=== PATIENT | female | born 1935 | race Caucasian/White ===

== ENCOUNTER 2022-05-28 16:16 | Inpatient (IN) | payer MEDICARE, SELFPAY ==
[2022-05-28] VITALS (16 sets, daily range): BP systolic 99–149; BP diastolic 57–84; PULSE 68–92; RESP 12–30; TEMP 36.4–36.6; O2SAT 93–100; BMI 27.3
--- NOTE | ~2022-05-28 | XR_ITS ---
EXAMINATION: XR elbow LT 2V DATE: 06/05/2022 09:01 INDICATION: Left elbow and upper arm pain post fall TECHNIQUE: 1. Internal and axillary rotated views of the left humerus were obtained. 2. Anteroposterior and lateral views of the left elbow were obtained. COMPARISON: None. FINDINGS: Alignment is normal at the left shoulder and elbow. No fracture. 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 No elbow joint effusion. Soft tissues are unremarkable. Opacities in the left mid to lower lung zone. Calcified nodule at the left costophrenic angle consistent with old granulomatous disease. IMPRESSION: 1. 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 No acute osseous abnormality. 2. Opacities in the left mid to lower lung zone which could represent pulmonary edema, pneumonia, sma ll left pleural effusion or some combination thereof. Reviewed, dictated and finalized at location A. IMPRESSION: 1. 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 No acute osseous abnormality. 2. Opacities in the left mid to lower lung zone which could represent pulmonary edema, pneumonia, small left pleural effusion or some combination thereof.
--- NOTE | ~2022-05-28 | CT_ITS ---
EXAMINATION: CT pelvis wo con DATE: 06/05/2022 08:53 INDICATION: Unwitnessed fall. Pelvic pain. TECHNIQUE: Computed tomography (CT) of the pelvis was performed without intravenous contrast. The dos e-length product was 632.02 mGy-cm. COMPARISON: None FINDINGS: Moderate degenerative change at L5-S1. No acute fracture or traumatic malalignment. There i s colonic diverticulosis. There is ascites. Nonobstructive bowel gas pattern. There is diffuse subcut aneous edema suggesting anasarca. There is atherosclerosis of the distal abdominal aorta and iliac ve ssels. IMPRESSION: 1. No acute fracture. 2: Ascites. Diffuse subcutaneous edema, consistent with anasarca. Reviewed, dictated and finalized at location B.
--- NOTE | ~2022-05-28 | CT_ITS ---
EXAMINATION: CT thoracic spine wo con DATE: 06/05/2022 08:47 INDICATION: Back pain post fall TECHNIQUE: Computed tomography (CT) of the thoracic spine was performed without intravenous contrast. Automated exposure control and iterative reconstruction technique were employed. The dose-length pro duct was 1104.14 mGy-cm. COMPARISON: None FINDINGS: Normal alignment in the thoracic spine. 2 mm retrolisthesis T12 on L1 and L1 on L2. Vertebral body he ights are normal. No fracture. Moderate disc height loss throughout the thoracic spine extending to t he lower cervical and upper lumbar spine. No central canal stenosis. Multilevel moderate to severe th oracic facet osteoarthritis resulting in mild to moderate neural foraminal stenosis with mid thoracic predominance. Moderate-sized right and makpl-cu-lmocdlpk left posterior layering pleural effusions w ith associated dependent compressive atelectasis. Atherosclerotic coronary artery calcification. Calc ified left hilar and mediastinal lymph nodes consistent with old granulomatous disease. Likely benign small bilateral thyroid nodules measuring up to 1.2 cm maximal diameter. 3-4 mm nonobstructing stone at the mid right kidney. 8 mm cyst at the upper pole of the left kidney. IMPRESSION: 1. Moderate thoracic spondylosis. No acute osseous abnormality. 2. Moderate right and byhve-zd-iibdupsq left pleural effusions with dependent compressive atelectasis . 3. Nonobstructing 3-4 mm right renal stone. Reviewed, dictated and finalized at location A. IMPRESSION: 1. Moderate thoracic spondylosis. No acute osseous abnormality. 2. Moderate right and peuxt-ny-oamriayn left pleural effusions with dependent c ompressive atelectasis. 3. Nonobstructing 3-4 mm right renal stone.
--- NOTE | ~2022-05-28 | XR_ITS ---
XR chest 1V portable DATE: 05/31/2022 17:28 INDICATION: Chest tightness TECHNIQUE: Portable upright AP chest on 05/31/2022 at 1723 hours COMPARISON: 05/28/2022 2 view chest FINDINGS: There are extensive patchy infiltrates throughout both lungs, more prominent in the lower l adrianna zones, increased since 05/28/2022. Probable cardiomegaly. There is extensive aortic calcification. Degenerative spurring of the cervical, thoracic and lumbar spine. Severe glenohumeral osteoarthritis on the left. Osteopenia. IMPRESSION: Diffuse prominent bilateral pulmonary infiltrates, increased since 05/28/2022 Reviewed, dictated and finalized at location A.
--- NOTE | ~2022-05-28 | XR_ITS ---
EXAMINATION: XR abdomen/kub 1V INDICATION: Abdominal distention TECHNIQUE: Supine views of the abdomen were obtained on 2 radiographs. COMPARISON: None FINDINGS: The bowel gas pattern is normal. There are no dilated loops of bowel. Calcified atheroscler osis is noted. There is severe lumbar spondylosis. There appear to be minimal airspace opacities of t he left lung base. There is mild osteoarthritis of the hips. IMPRESSION: 1. No radiographic correlate for the patient's symptoms. 2. Minimal left basilar airspace opacity, consistent with atelectasis versus pneumonia. Reviewed, dictated and finalized at location A. IMPRESSION: 1. No radiographic correlate for the patient's symptoms. 2. Minimal left basilar airspace opacity, consistent with atelectasis versus pn eumonia.
--- NOTE | ~2022-05-28 | XR_ITS ---
EXAMINATION: XR chest 1V portable DATE: 06/03/2022 08:35 INDICATION: Shortness of breath. TECHNIQUE: A single frontal view of the chest was obtained. COMPARISON: Chest single view 05/31/2022, chest 2 views 05/28/2022 FINDINGS: There is a diffuse interstitial pattern in the lungs. There are airspace opacities in the p erihilar regions and lower lung zones. There are small pleural effusions. No pneumothorax. Cardiomega ly is noted. IMPRESSION: 1. Diffuse lung disease with mild improvement in the upper lobes, consistent with pulmonary edema melissa lauren pneumonia. 2. Stable small pleural effusions. 3. Cardiomegaly. Reviewed, dictated and finalized at location A. IMPRESSION: 1. Diffuse lung disease with mild improvement in the upper lobes, consistent wi th pulmonary edema versus pneumonia. 2. Stable small pleural effusions. 3. Cardiomegaly.
--- NOTE | ~2022-05-28 | XR_ITS ---
EXAMINATION: XR abdomen obstructive series DATE: 06/05/2022 10:13 INDICATION: Fecal impaction TECHNIQUE: Supine and upright views of the abdomen. FINDINGS: Comparison to multiple prior studies sequentially, with oldest reviewed study dated 022. The visualized lung parenchyma is normal.. There is a nonobstructive bowel gas pattern. Gas and stool are seen throughout the colon to the level of the rectum. There is no free air. There is residual c ontrast in the colon with multiple colonic diverticula. No significant fecal material identified in t he colon. Left basilar consolidation may represent atelectasis or pneumonia. Small pleural effusions. IMPRESSION: 1. No acute abdominal abnormality. 2: Left basilar consolidation, atelectasis versus pneumonia. 3: Small pleural effusions. Reviewed, dictated and finalized at location B.
--- NOTE | ~2022-05-28 | CT_ITS ---
EXAMINATION: CT cervical spine wo con DATE: 06/05/2022 08:44 INDICATION: Head injury TECHNIQUE: Computed tomography (CT) of the cervical spine was performed without intravenous contrast. The dose-length product (DLP) was 262.19 mGy-cm. Automated exposure control and iterative reconstruc tion technique were employed. COMPARISON: None FINDINGS: There are 2 mm of anterolisthesis of C3 on C4. There is severe loss of intervertebral disc space height at C5-6, C6-7, and C7-T1. There is severe facet and uncovertebral joint osteoarthritis t hroughout the cervical spine. The odontoid is intact. There is no fracture. The prevertebral soft tis sues are normal. There are moderate-sized pleural effusions. There are patchy airspace opacities in t he visualized lung apices. IMPRESSION: 1. Severe cervical spondylosis without acute findings. Reviewed, dictated and finalized at location A.
--- NOTE | ~2022-05-28 | CT_ITS ---
EXAMINATION: CT brain wo con DATE: 05/28/2022 18:55 INDICATION: Altered mental status. Hallucinations. TECHNIQUE: Computed tomography (CT) of the head was performed without intravenous contrast. The dose- length product was 756.67 mGy-cm. Automated exposure control and iterative reconstruction technique w ere employed. COMPARISON: No prior studies for comparison. FINDINGS: There is a large CSF density mass involving the left middle cranial fossa and parietal lobe s with mass effect on the adjacent brain parenchyma. This mass measures 7.4 x 4.1 x 6.7 cm, most like ly an arachnoid cyst. There is mass effect on the adjacent parenchyma. No significant midline shift. Basilar cisterns are patent. No ventriculomegaly. There are scattered mild periventricular and subcor tical white matter changes, most likely related to small vessel ischemic disease (microangiopathy). IMPRESSION: 1. Large CSF density mass left hemisphere involving the left middle cranial fossa and parietal lobe, most likely benign arachnoid cyst. Recommend comparison to previous outside CT if available. There is mass effect on the adjacent parenchyma. 2: Chronic age-related findings. Reviewed, dictated and finalized at location A. IMPRESSION: 1. Large CSF density mass left hemisphere involving the left middle cranial fos sa and parietal lobe, most likely benign arachnoid cyst. Recommend comparison t o previous outside CT if available. There is mass effect on the adjacent parenc hyma. 2: Chronic age-related findings.
--- NOTE | ~2022-05-28 | US_ITS ---
EXAMINATION: US abdomen limited DATE: 06/05/2022 13:09 INDICATION: Anasarca and possible ascites TECHNIQUE: Limited ultrasound of the abdomen is obtained to assess for ascites. COMPARISON: None available FINDINGS: Abdominal and pelvic ascites is noted with a moderate volume of ascites in the right upper and lower quadrant and a small amount of ascites in the left lower quadrant. IMPRESSION: 1. Moderate volume of ascites. Reviewed, dictated and finalized at location A.
--- NOTE | ~2022-05-28 | CT_ITS ---
EXAMINATION: CT brain wo con DATE: 06/05/2022 08:44 INDICATION: Altered mental status . Unwitnessed fall. TECHNIQUE: Computed tomography (CT) of the head was performed without intravenous contrast. Sagittal and coronal reconstructions were performed. The mA was adjusted according to patient size. Iterative reconstruction technique was employed. The dose-length product was 605.33 mGy-cm. COMPARISON: head CT dated 05/28/2022 FINDINGS: No fracture. Again seen is a large CSF attenuation or fluid collection containing cephalad from the l eft middle cranial fossa which exerts mass effect upon the left frontal and temporal lobes consistent with an arachnoid cyst. This measures approximately 8.2 x 4.3 x 6.2 cm. No acute intracranial hemorr dwight, acute infarction or abnormal extra axial fluid collection.. There is mild scattered white matte r hypoattenuation consistent with chronic small vessel ischemic disease. Ventricles are normal and sy mmetric. No solid mass. Basal cisterns are patent. Changes of bilateral intraocular lens replacement. The orbits, paranasal sinuses and mastoid air cells are normal. IMPRESSION: 1. No acute intracranial process. 2. Large CSF density lesion extending cephalad from the left middle cranial fossa exerting mass effec t upon the adjacent left frontal and temporal lobes most consistent with an arachnoid cyst. 3. Mild scattered white matter hypoattenuation consistent with chronic small vessel ischemic disease. Reviewed, dictated and finalized at location A. IMPRESSION: 1. No acute intracranial process. 2. Large CSF density lesion extending cephalad from the left middle cranial fos sa exerting mass effect upon the adjacent left frontal and temporal lobes most consistent with an arachnoid cyst. 3. Mild scattered white matter hypoattenuation consistent with chronic small ve ssel ischemic disease.
--- NOTE | ~2022-05-28 | XR_ITS ---
XR abdomen/kub 1V 06/04/2022 12:37 Indication: Abdominal pain Procedure: AP supine view of the abdomen Comparison: 05/29/2022 Findings: Nonobstructive bowel pattern. There is residual contrast in the colon with multiple diverti cula. No abnormal calcifications. There is atherosclerosis of the aorta. There is fecal impaction of the rectum. Impression: 1: Fecal impaction of the rectum. No obstruction. 2: Colonic diverticulosis. Reviewed, dictated and finalized at location B. Impression: 1: Fecal impaction of the rectum. No obstruction. 2: Colonic diverticulosis.
--- NOTE | ~2022-05-28 | XR_ITS ---
EXAMINATION: XR chest 2V DATE: 05/28/2022 17:16 INDICATION: Shortness of breath TECHNIQUE: AP and lateral views of the chest are obtained. COMPARISON: None available FINDINGS: There are patchy airspace opacities throughout the lungs. Small pleural effusions are prese nt. There is no pneumothorax. The heart size is upper limits of normal for technique. There is advanc ed osteoarthritis of the left shoulder. There is moderate thoracic spondylosis. IMPRESSION: 1. Patchy bilateral airspace opacities, consistent with pneumonia versus pulmonary edema. 2. Small pleural effusions. Reviewed, dictated and finalized at location A. IMPRESSION: 1. Patchy bilateral airspace opacities, consistent with pneumonia versus pulmon cassie edema. 2. Small pleural effusions.
--- NOTE | ~2022-05-28 | XR_ITS ---
XR humerus LT 06/05/2022 09:01 Indication: Left arm pain after fall Procedure: 2 views left humerus Comparison: No prior studies for comparison. Findings: There is moderate polyarticular osteoarthritis of the left shoulder. There are degenerative changes of the elbow. No acute fracture or traumatic malalignment. Impression: 1: No acute fracture. Reviewed, dictated and finalized at location B. Impression: 1: No acute fracture.
--- NOTE | ~2022-05-28 | US_ITS ---
EXAMINATION: US renal BI DATE: 05/29/2022 12:35 INDICATION: Renal failure TECHNIQUE: Multiple grayscale and Doppler ultrasound images of the kidneys were obtained. COMPARISON: None. FINDINGS: The right kidney measures 12.1 x 3.8 x 4.5 cm. The left kidney measures 10.9 x 4.4 x 5.2 cm . The kidneys demonstrate normal parenchymal echogenicity. There is no hydronephrosis. The bladder is normal. Ascites is noted. IMPRESSION: 1. Normal kidneys without hydronephrosis. 2. Ascites is noted. Reviewed, dictated and finalized at location A.
--- NOTE | ~2022-05-28 | XR_ITS ---
MODIFIED ESOPHAGRAM HISTORY: Cough on liquids TECHNIQUE: Modified barium esophagram was performed by speech pathologist under radiologist fluorosco pic guidance. This was recorded on tape. The exam was reviewed on 05/31/2022 12:24 CDT. The DAP for this procedure was 1.3 Gycm2. Fluoroscopy time is 2.2 minutes. FINDINGS: Lateral projection of the cervical spine demonstrates normal alignment. There is normal s wallowing function without penetration or aspiration.. IMPRESSION: 1: Normal swallowing function without penetration or aspiration. 2: Please refer to speech pathologist report for additional detail. Reviewed, dictated and finalized at location A.
--- NOTE | ~2022-05-28 | XR_ITS ---
XR chest 1V 06/05/2022 09:01 Indication: Status post fall. Procedure: AP upright view of the chest Comparison: 06/03/2022 Findings: Cardiomegaly. Stable bilateral airspace disease of the mid and lower lungs. Probable small effusions. No acute osseous abnormality. Impression: 1: Stable bilateral airspace disease which may represent edema and/or pneumonia. Reviewed, dictated and finalized at location B. Impression: 1: Stable bilateral airspace disease which may represent edema and/or pneumonia .
--- NOTE | 2022-05-28 16:40 | ECG_ITS ---
Measurements Intervals [place] Rate: 68 P: 76 VA: 161 QRS: -18 QRSD: 114 T: 25 QT: 427 QTc: 455 Interpretive Statements SINUS RHYTHM INTRAVENTRICULAR CONDUCTION DELAY INFERIOR INFARCT, AGE INDETERMINATE ANTEROSEPTAL INFARCT, AGE INDETERMINATE BORDERLINE ST-T WAVE ABNORMALITY- LAT/HIGH LAT LEADS BASELINE WANDER- I, AVR, V1, V3-V6 ABNORMAL ECG NO PREVIOUS ECG AVAILABLE FOR COMPARISON Electronically Signed On 05-28-2022 21:21:43 CDT by Rick Davalos D.O.
[2022-05-28 16:58] LABS: Basophils Absolute Auto 0.1 K/mm3 (0.0-0.1); Basophils Percent Auto 0.8 % (0.2-1.2); Eosinophils Absolute Auto 0.3 K/mm3 (0-0.3); Eosinophils Percent Auto 3.3 % (0-4.4); Hematocrit 31.9 % (37.0-47.0); Hemoglobin 9.4 g/dL (12.0-15.0); Immature Granulocyte Absolute 0.03 K/mm3 (0.00-0.031); Immature Granulocyte Percent A 0.4 % (0-0.5); Lymphocytes Absolute Auto 1.17 K/mm3 (0.9-3.2); Lymphocytes Percent Auto 13.9 % (18.3-44.2); Mean Corpuscular HGB Conc 29.5 g/dl (32-36); Mean Corpuscular Hemoglobin 25.8 pg (26-34); Mean Corpuscular Volume 87.4 fl (80-100); Mean Platelet Volume 9.3 fl (7.4-10.4); Monocytes Absolute Auto 0.7 K/mm3 (0.1-0.6); Monocytes Percent Auto 8.7 % (2.6-8.5); Neutrophils Absolute Auto 6.1 K/mm3 (1.3-6.7); Neutrophils Percent Auto 72.9 % (45.5-73.1); Platelet Count Result 248 k/mm3 (150-375); Red Blood Count 3.65 M/mm3 (4.2-5.4); Red Cell Distribution Width 16.5 % (11.5-14.5); White Blood Count 8.4 K/mm3 (4.5-10.0)
[2022-05-28 17:03] LABS: Alanine Aminotransferase 11 U/L (6-35); Albumin Level 3.8 g/dL (3.5-5.1); Alkaline Phosphatase 75 U/L (38-126); Anion Gap 11 mmol/L (8-16); Aspartate Amino Transferase 26 U/L (14-36); Blood Urea Nitrogen 21 mg/dL (7-17); Calcium 10.1 mg/dL (8.4-10.2); Carbon Dioxide 28 mmol/L (22-30); Chloride 101 mmol/L (98-107); Estimated CRCL calculation 16 ml/min; Estimated Glomerular Filt Rate 21; Glucose 78 mg/dL (65-110); Sodium 140 mmol/L (137-145)
[2022-05-28 17:21] LABS: Hypochromasia 1+ (NORMAL); Ovalocytes 1+ (NORMAL); Platelet Estimate Adequate (Adequate); Target Cells 1+ (NORMAL)
[2022-05-28 17:22] LABS: Schistocytes None Seen (NORMAL)
--- NOTE | 2022-05-28 18:09 | ED.SOB ---
HPI - SOB/Dyspnea General Chief Complaint: Shortness of Breath/Dyspnea <Anna Maddox PA-C - Last Filed: 05/28/22 21:36> Stated Complaint: shortness of breath <Anna Maddox PA-C - Last Filed: 05/28/22 21:36> Time Seen by Provider: 05/28/22 17:38 <Anna Maddox PA-C - Last Filed: 05/28/22 21:36> Source: patient <Anna Maddox PA-C - Last Filed: 05/28/22 21:36> Mode of arrival: EMS <CHRISTIANO Brown Last Filed: 05/28/22 21:36> Limitations: no limitations <Anna Maddox PA-C - Last Filed: 05/28/22 21:36> History of Present Illness HPI Narrative: Patient is an 86-year-old female, with PMHx of COPD, who presents the ED via EMS with report of AMS, SOB. Patient's niece at bedside assisted in providing information. Patient is currently undergoing physical rehabilitation at [facility] status post fall and acute kidney injury 5 weeks ago in which she was hospitalized for several days at [facility]. Over the last day, she has had increased work of breathing. She was noted to have an oxygen saturation of 84% on room air at therapy today. EMS was then called to bring the patient here. Patient does not wear home O2. She does report having shortness of breath, cough, BLE edema, but denies any nausea, vomiting, abdominal pain, chest pain, fevers. Niece at bedside also reports patient has been having some auditory hallucinations over the last couple days, thinking she has been hearing the voices of relatives who have . <Anna Maddox PA-C - Last Filed: 05/28/22 21:36> Related Data Home Medications: Home Medications Medication Instructions Recorded Confirmed amlodipine 5 mg tablet 5 mg PO QHS 05/28/22 05/28/22 aspirin 81 mg tablet 81 mg PO DAILY 05/28/22 05/28/22 fluticasone fur. 100 mcg-umeclid 1 inh inhalation DAILY 05/28/22 05/28/22 62.5 mcg-vilant 25 mcg inhalat.powder (Trelegy Ellipta) metoprolol tartrate 50 mg tablet 50 mg PO BID 05/28/22 05/28/22 mirtazapine 15 mg tablet (Remeron) 7.5 mg PO HS 05/28/22 05/28/22 sodium bicarbonate 650 mg tablet 1,300 mg PO BID 05/28/22 05/28/22 solifenacin 10 mg tablet (Vesicare) 10 mg PO QAM 05/28/22 05/28/22 <CHRISTIANO Brown Last Filed: 05/28/22 21:36> Allergies/Adverse Reactions: Allergies Allergy/AdvReac Type Severity Reaction Status Date / Time Penicillins Allergy Rash Verified 05/28/22 19:43 <Anna Maddox PA-C - Last Filed: 05/28/22 21:36> Review of Systems Review of Systems: CONSTITUTIONAL: Denies fever, chills, or sweats. CARDIOVASCULAR: Reports BLE edema. Denies chest pain, palpitations. RESPIRATORY: Reports cough and dyspnea. GASTROINTESTINAL: Denies abdominal pain, nausea, vomiting, or diarrhea. NEUROLOGIC: Denies headache, numbness, or weakness. PSYCHIATRIC: Reports auditory hallucinations. Denies anxiety or depression. <CHRISTIANO Brown Last Filed: 05/28/22 21:36> All systems reviewed & are unremarkable except as noted in HPI and below <CHRISTIANO Brown Last Filed: 05/28/22 21:36> [facility] Past Medical History Medical History: Medical History (Updated 06/07/22 @ 15:19 by Megan Parra APRN) (HFpEF) heart failure with preserved ejection fraction Acute kidney injury Anasarca Anemia Arachnoid cyst CKD (chronic kidney disease) COPD (chronic obstructive pulmonary disease) Depression HTN (hypertension) Hypothyroidism Overactive bladder Paroxysmal atrial fibrillation Pulmonary hypertension <CHRISTIANO Brown Last Filed: 05/28/22 21:36> Surgical History Surgical History: Surgical History History of knee replacement History of tonsillectomy <Anna Maddox PA-C - Last Filed: 05/28/22 21:36> Family History Family History: Family History (Reviewed 06/07/22 @ 15:20 by Megan Barahona
[2022-05-28 18:44] LABS: SARS-CoV-2 RNA PCR Negative
[2022-05-28 19:01] LABS: NT Pro B Type Natriuretic Pept 14200 pg/mL (5-100); Troponin I 0.025 ng/mL (0.000-0.034)
[2022-05-28] MEDS: FUROSEMIDE INJ 40 MG/4 ML VIAL IV PUSH (19:46)
[2022-05-28] MEDS: POTASSIUM CHLORIDE INJ 40 MEQ in SODIUM CHLORIDE 0.9% IV 500 ML 130 MEQ IVPB (19:46)
--- NOTE | 2022-05-28 20:19 | PC.NURSE ---
Pt assisted x1 to bedside commode to void. UA not collected due to pt had used toilet paper with visible stool fell into specimen cup. UA dispose of now. PA made aware.
[2022-05-28 20:46] LABS: Appearance Urine Clear (Clear); Bilirubin Urine Negative (Negative); Color Urine Yellow (Yellow); Glucose Urine UA Negative (Negative); Ketones Urine Negative (Negative); Leukocyte Esterase Ur 3+ LEU/UL (Negative); Nitrate Urine Positive (Negative); Protein Urine 1+ mg/dL (Negative); Specific Grav Ur 1.015 (1.001-1.035); Urobilinogen Urine 0.2 mg/dL (<2.0); pH Urine 6.5 (5.0-9.0)
[2022-05-28 20:57] LABS: Add Urine Microscopic? YES; Blood Urine Trace-Intact (Negative)
[2022-05-28 20:59] LABS: Amorphous Sediment Urine Few; Bacteria Urine Trace /hpf; Mucus Urine Rare /lpf; WBC Urine 31-50 /hpf
[2022-05-28 21:07] LABS: Troponin I 0.027 ng/mL (0.000-0.034)
--- NOTE | 2022-05-28 21:57 | ADMGEN ---
This patient, Simona Gaytan, was admitted to Medical Room 343-01. Patient/family oriented to hospital policies and general routines including ID bracelet, bed and alarms, visiting hours, pain management, procedures, bathroom and other care routines, personal items, smoking policy, room service/diet, and visiting hours. Information on how to activate the Rapid Response Team has been discussed. Patient/Family are encouraged to report perceived risks to care and to ask questions if they do not understand what they are told or what they should do.
--- NOTE | 2022-05-28 22:53 | PC.NURSE ---
PER ED UNABLE TO OBTAIN UA FROM PATIENT. PT RECORD SHOWS COLLECTION WAS COMPLETED. CALLED MAIN LAB TO VERIFY RECEIPT OF UA. PER GUALBERTO TECHNICAL OPERATIONS SPECIALIST, UA RECEIVED AND CURRENTLY PROCESSING.
--- NOTE | 2022-05-28 23:04 | PM.IMHP ---
H&P: HPI History of Present Illness Date/Time: 05/28/22 23:04 Chief Complaint: Shortness of breath Narrative: Patient is an 86-year-old female, with PMHx of COPD, who presents the ED via EMS with report of AMS and SOB.? patient is currently somnolent the history is taken from the medical records. She has currently in a rehab facility underlying rehabilitation from recent admission related to fall and acute kidney injury about 5 weeks ago at [facility]. Over the last few days she has been having increased work of breathing and was noted hypoxia oxygen saturation 84% therapy. See was then brought into the ER for further evaluation. She normally is not on oxygen at home. She denies any fever chills chest pain nausea vomiting abdominal pain. It has also been reported that she has been having some auditory hallucinations over the last few days. Which relates to hearing voices the related to a . On the ED evaluation she was noted to be hypoxic with mildly low blood pressure. Her potassium was low at 3 with creatinine 2.2. Prior records are not available for review. Baseline [place] [id number]. Chest x-ray was consistent with heart failure exacerbation pleural effusion pulmonary edema. She was placed on 2 L oxygen as her oxygen saturation was 88% on room air. She was given IV Lasix in the ER. COVID swab was done and was negative. Head CT was done which showed large arachnoid cyst which will also reported to be present and previous CT scans. Review of Systems Review of Systems: - CONSTITUTIONAL: Denies weight loss, fever and chills. - HEENT: Denies changes in vision and hearing - RESPIRATORY: Reports SOB and cough. - CV: Denies palpitations and CP. - GI: Denies abdominal pain, nausea, vomiting and diarrhea. - : Denies dysuria and urinary frequency. - MSK: Denies myalgia and joint pain. - SKIN: Denies rash and pruritus. - NEUROLOGICAL: Denies headache and syncope. - PSYCHIATRIC: Denies recent changes in mood. Denies anxiety and depression. PENDING SALE TO [facility] Past Medical History Medical History (Updated 05/28/22 @ 23:11 by Shreyas Osei MD) COPD (chronic obstructive pulmonary disease) Depression HTN (hypertension) Overactive bladder Surgical History Surgical History (Updated 05/28/22 @ 19:23 by Anna Maddox PA-C) History of knee replacement History of tonsillectomy Social History Social History (Updated 05/28/22 @ 19:23 by Anna Maddox PA-C) Smoking status: Never smoker Alcohol intake: current Drinks per week: 3 Substance use: never Living arrangements: assisted living Spiritual care concerns: No Meds Home Medications and Allergies Home Medications Medication Instructions Recorded Confirmed Type amlodipine 5 mg tablet 5 mg PO QHS 05/28/22 05/28/22 History aspirin 81 mg tablet 81 mg PO DAILY 05/28/22 05/28/22 History fluticasone fur. 100 mcg-umeclid 1 inh inhalation DAILY 05/28/22 05/28/22 History 62.5 mcg-vilant 25 mcg inhalat.powder (Trelegy Ellipta) metoprolol tartrate 50 mg tablet 50 mg PO BID 05/28/22 05/28/22 History mirtazapine 15 mg tablet (Remeron) 7.5 mg PO HS 05/28/22 05/28/22 History sodium bicarbonate 650 mg tablet 1,300 mg PO BID 05/28/22 05/28/22 History solifenacin 10 mg tablet (Vesicare) 10 mg PO QAM 05/28/22 05/28/22 History Allergies Allergy/AdvReac Type Severity Reaction Status Date / Time Penicillins Allergy Rash Verified 05/28/22 19:43 Vital Signs Vital Signs - 24 hr 05/28/22 16:34 05/28/22 17:06 05/28/22 16:40 Temperature 97.8 F Pulse Rate 70 70 Respiratory Rate 20 Blood Pressure 99/57 L Pulse Oximetry 100 97 Oxygen Delivery Room Air Nasal Cannula Oxygen Flow Rate 2 05/28/22 16:40 05/28/22 19:50 05/28/22 20:05 Temperature Pulse Rate 84 Respiratory Rate 20 28 H Blood Pressure 149/84 H Pulse Oximetry 97 100 100 Oxygen Delivery Edward
[2022-05-28 23:22] LABS: Troponin I 0.027 ng/mL (0.000-0.034)
[2022-05-28 23:26] LABS: Base Excess ABG 3.6 mEq/l (+/-2.0); Fractional Inspired Oxygen 28 %; HCO3 ABG 29.5 mEq/l (22.0-26.0); Oxygen Content ABG 14.4 %vol (16.0-22.0); Oxygen Saturation ABG 94.6 % (95.0-100.0); Oxyhemoglobin 93.5 % THb (90.0-100.0); PCO2 ABG 50.9 mmHg (35.0-45.0); PO2 ABG 74.6 mmHg (80.0-100.0); PO2 FiO2 Ratio Arterial Blood 2.66 %; Total Hemoglobin 10.9 g/dL (12.0-18.0); pH ABG 7.381 (7.350-7.450)
[2022-05-28 23:27] LABS: Device NASAL CANNULA; Modified Allen's Test Pass; Site Drawn LEFT RADIAL
--- NOTE | 2022-05-28 23:28 | PC.NURSE ---
NOTIFIED LAB OF NEW ORDERS TO BE APPLIED TO UA SPECIMEN.
[2022-05-28] MEDS: SODIUM CHLORIDE 0.9% IV 1,000 ML 50 ML IV CONT (23:54)
[2022-05-28 23:55] LABS: Urea Random Urine 233 MG/DL
[2022-05-28] MEDS: amLODIPine BESYLATE 5 MG TABLET PO (23:58)
[2022-05-28] MEDS: METOPROLOL TARTRATE 50 MG TAB PO (23:58)
[2022-05-28 23:59] LABS: Lactic Acid Reflex 0.8 mmol/L (0.7-2.0)
[2022-05-29] VITALS (13 sets, daily range): BP systolic 129–137; BP diastolic 68–83; PULSE 63–80; RESP 16–22; TEMP 36.4–36.7; O2SAT 95–100
--- NOTE | 2022-05-29 | ECHO_ITS ---
Patient Info Name: Simona Gaytan Age: 86 years : 1935 Gender: Female Ht: 65 in Wt: 164 lbs BSA: 1.86 m2 HR: 64 bpm BP: 133 / 83 mmHg Heart Rhythm: Sinus Rhythm Technical Quality: Fair Exam Date: 05/29/2022 8:57 AM Exam Location: [facility] Card Pulmonary Patient Status: Inpatient Admit Date: 05/28/2022 Staff Ordering Physician: Shreyas Osei MD Technical Support Manager: Acacia Hicks RDCS Attending Provider: Shreyas Osei MD Exam Type: CA echo doppler color flow Study Info Indications R06.02 - Shortness of breath Complete two-dimensional, color flow and Doppler transthoracic echocardiogram is performed. Summary 1. Complete two-dimensional, color flow and Doppler transthoracic echocardiogram is performed. 2. Left ventricular chamber dimension is normal. 3. Left ventricular systolic function is normal, estimated at 65-70%. 4. The left ventricular diastolic function is grade II diastolic dysfunction. 5. E/e' 18 is elevated. 6. Left atrial chamber dimension is mildly enlarged. 7. There is mild mitral valve regurgitation. 8. There is moderate tricuspid valve regurgitation. 9. Severe pulmonary hypertension, estimated pulmonary arterial systolic pressure is 64 mmHg. 10. There is trivial pericardial effusion. 11. Pleural effusion noted. Left Ventricle E/e' 18 is elevated. Left ventricular chamber dimension is normal. Left ventricular systolic function is normal, estimated at 65-70%. The left ventricular diastolic function is grade II diastolic dysfunction. Right Ventricle Right ventricular chamber dimension is normal. Right ventricular systolic function is normal. Left Atria Left atrial chamber dimension is mildly enlarged. Right Atria Right atrial chamber dimension is normal. Aortic Valve The aortic valve is trileaflet. There is no aortic valve stenosis. There is no aortic valve regurgitation. Pulmonic Valve There is no pulmonic regurgitation. Mitral Valve There is no mitral valve stenosis. There is mild mitral valve regurgitation. Tricuspid Valve There is moderate tricuspid valve regurgitation. Severe pulmonary hypertension, estimated pulmonary arterial systolic pressure is 64 mmHg. Pericardium/Pleural Pleural effusion noted. There is trivial pericardial effusion. Inferior Vena Cava Normal inferior vena cava with >50% collapse upon inspiration consistent with normal right atrial pressure, 5 mmHg. Aorta The aortic root size at the sinus of Valsalva is normal. Left Ventricular Outflow Tract Name Value Normal LVOT 2D LVOT Diameter 2.0 cm LVOT Doppler LVOT Peak Gradient 4 mmHg LVOT Mean Gradient 2 mmHg LVOT VTI 25 cm LVOT VTI/AV VTI Ratio 0.7 LVOT Stroke Volume 74 ml LVOT CO 5.2 l/min LVOT CI 2.8 l/min/m2 Pulmonic Valve Name Value N
[2022-05-29 00:01] LABS: Sodium Urine Random 96 meq/L
[2022-05-29 01:13] LABS: Eosinophil Urine None Seen % (None Seen)
[2022-05-29 05:38] LABS: Basophils Absolute Auto 0.1 K/mm3 (0.0-0.1); Basophils Percent Auto 0.6 % (0.2-1.2); Eosinophils Absolute Auto 0.4 K/mm3 (0-0.3); Eosinophils Percent Auto 5.1 % (0-4.4); Hematocrit 30.8 % (37.0-47.0); Immature Granulocyte Absolute 0.02 K/mm3 (0.00-0.031); Immature Granulocyte Percent A 0.2 % (0-0.5); Lymphocytes Percent Auto 9.3 % (18.3-44.2); Mean Corpuscular HGB Conc 29.2 g/dl (32-36); Mean Corpuscular Hemoglobin 26.1 pg (26-34); Mean Corpuscular Volume 89.3 fl (80-100); Mean Platelet Volume 9.5 fl (7.4-10.4); Monocytes Absolute Auto 0.9 K/mm3 (0.1-0.6); Monocytes Percent Auto 10.7 % (2.6-8.5); Neutrophils Absolute Auto 6.4 K/mm3 (1.3-6.7); Neutrophils Percent Auto 74.1 % (45.5-73.1); Platelet Count Result 219 k/mm3 (150-375); Red Blood Count 3.45 M/mm3 (4.2-5.4); Red Cell Distribution Width 16.5 % (11.5-14.5); White Blood Count 8.6 K/mm3 (4.5-10.0)
[2022-05-29 05:52] LABS: Alanine Aminotransferase 10 U/L (6-35); Albumin Level 3.4 g/dL (3.5-5.1); Alkaline Phosphatase 68 U/L (38-126); Anion Gap 10 mmol/L (8-16); Aspartate Amino Transferase 22 U/L (14-36); Bilirubin,Total 0.7 mg/dL (0.2-1.3); Blood Urea Nitrogen 21 mg/dL (7-17); Calcium 9.5 mg/dL (8.4-10.2); Carbon Dioxide 30 mmol/L (22-30); Chloride 103 mmol/L (98-107); Estimated CRCL calculation 18 ml/min; Estimated Glomerular Filt Rate 21; Glucose 76 mg/dL (65-110); Magnesium 1.9 mg/dL (1.6-2.3); Potassium 3.1 mmol/L (3.4-5.0); Sodium 143 mmol/L (137-145)
[2022-05-29 06:08] LABS: Anisocytosis 1+ (NORMAL); Hypochromasia 1+ (NORMAL); Platelet Estimate Adequate (Adequate)
[2022-05-29 06:35] LABS: Schistocytes None Seen (NORMAL)
[2022-05-29] MEDS: FLUTICASONE/UMECLIDIN/VILANTER 100-62.5-25 MCG ELLIPTA 1 PUFF INHALATION (08:11)
[2022-05-29 09:04] LABS: Transferrin 166 mg/dL (206-381)
[2022-05-29] MEDS: POTASSIUM CHLORIDE 20 MEQ TABLET 40 MEQ PO (09:55)
[2022-05-29] MEDS: SODIUM BICARBONATE TAB 650 MG TABLET 1300 MG PO ×2 (09:56→16:46)
[2022-05-29] MEDS: ASPIRIN 81 MG CHEWABLE TABLET PO (09:56)
[2022-05-29] MEDS: SOLIFENACIN 5 MG TABLET 10 MG PO (09:56)
[2022-05-29] MEDS: METOPROLOL TARTRATE 50 MG TAB PO ×2 (09:56→16:47)
--- NOTE | 2022-05-29 10:00 | P.PNIM_ITS ---
Progress Note: A&P Assessment and Plan (1) Acute CHF (congestive heart failure): Qualifiers: Heart failure type: unspecified Qualified Code(s): I50.9 - Heart failure, unspecified Code(s): I50.9 - Heart failure, unspecified Status: Acute Assessment and Plan: * Chest xray consistent with heart failure, pleural effusion and pulmonary edema * Baseline trop negative * BNP 93817 * Supplement oxygen at 2L, wean to maintain saturation of >90% * IV lasix 40mg BID * Daily weights * Strict I and Os * Echo EF 65-70% with grade 2 diastolic dysfunction * Probably an acute on chronic diastolic congestive heart failure exacerbation (2) Acute respiratory failure with hypoxia: Code(s): J96.01 - Acute respiratory failure with hypoxia Status: Acute Assessment and Plan: * Presented with increase work of breathing, hypoxic, tripoding, and unabale to finish sentences * Saturation on arrival was 84% * Supplement oxygen provided * ABG resp acidosis * Continue to wean oxygen (3) Acute hypokalemia: Code(s): E87.6 - Hypokalemia Status: Acute Assessment and Plan: * K is 3.1 * Supplement with 40meq PO once * Trend K * Replace as indicated (4) Urinary tract infection: Qualifiers: Hematuria presence: with hematuria Urinary tract infection type: acute cystitis Qualified Code(s): N30.01 - Acute cystitis with hematuria Code(s): N39.0 - Urinary tract infection, site not specified Status: Acute Assessment and Plan: * UA does appear to be infectious * Ceftriaxone on board * Urine culture pending * Await culture results * Adjust antibiotics to culture results (5) COPD (chronic obstructive pulmonary disease): Code(s): J44.9 - Chronic obstructive pulmonary disease, unspecified Status: Acute Assessment and Plan: * Seems stable * Chest xray paints more of a CHF picture * Neb treatments * trend respiratory status (6) HTN (hypertension): Code(s): I10 - Essential (primary) hypertension Status: Acute Assessment and Plan: * BP 133/83 * Continue amlodipine 5mg PO QHS, Metoprolol 50mg PO BID * Continue to trend BP * Adjust therapy as indicated (7) Overactive bladder: Code(s): N32.81 - Overactive bladder Status: Acute Assessment and Plan: * Continue Vesicare (8) Hallucinations: Code(s): R44.3 - Hallucinations, unspecified Status: Acute Assessment and Plan: * Continue to monitor * Could be related to infection * Head CT found a cyst (9) Acute metabolic encephalopathy: Code(s): G93.41 - Metabolic encephalopathy Status: Acute Assessment and Plan: * 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 large arachnoid cyst * Could also be from infection * Continue to trend mental status * continue home Remeron for sleep health (10) 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
--- NOTE | 2022-05-29 10:00 | PM.IMPN ---
Progress Note: A&P Assessment and Plan (1) Acute CHF (congestive heart failure): Qualifiers: Heart failure type: unspecified Qualified Code(s): I50.9 - Heart failure, unspecified Code(s): I50.9 - Heart failure, unspecified Status: Acute Assessment and Plan: Chest xray consistent with heart failure, pleural effusion and pulmonary edema Baseline trop negative BNP 39681 Supplement oxygen at 2L, wean to maintain saturation of >90% IV lasix 40mg BID Daily weights Strict I and Os Echo EF 65-70% with grade 2 diastolic dysfunction Probably an acute on chronic diastolic congestive heart failure exacerbation (2) Acute respiratory failure with hypoxia: Code(s): J96.01 - Acute respiratory failure with hypoxia Status: Acute Assessment and Plan: Presented with increase work of breathing, hypoxic, tripoding, and unabale to finish sentences Saturation on arrival was 84% Supplement oxygen provided ABG resp acidosis Continue to wean oxygen (3) Acute hypokalemia: Code(s): E87.6 - Hypokalemia Status: Acute Assessment and Plan: K is 3.1 Supplement with 40meq PO once Trend K Replace as indicated (4) Urinary tract infection: Qualifiers: Hematuria presence: with hematuria Urinary tract infection type: acute cystitis Qualified Code(s): N30.01 - Acute cystitis with hematuria Code(s): N39.0 - Urinary tract infection, site not specified Status: Acute Assessment and Plan: UA does appear to be infectious Ceftriaxone on board Urine culture pending Await culture results Adjust antibiotics to culture results (5) COPD (chronic obstructive pulmonary disease): Code(s): J44.9 - Chronic obstructive pulmonary disease, unspecified Status: Acute Assessment and Plan: Seems stable Chest xray paints more of a CHF picture Neb treatments trend respiratory status (6) HTN (hypertension): Code(s): I10 - Essential (primary) hypertension Status: Acute Assessment and Plan: BP 133/83 Continue amlodipine 5mg PO QHS, Metoprolol 50mg PO BID Continue to trend BP Adjust therapy as indicated (7) Overactive bladder: Code(s): N32.81 - Overactive bladder Status: Acute Assessment and Plan: Continue Vesicare (8) Hallucinations: Code(s): R44.3 - Hallucinations, unspecified Status: Acute Assessment and Plan: Continue to monitor Could be related to infection Head CT found a cyst (9) Acute metabolic encephalopathy: Code(s): G93.41 - Metabolic encephalopathy Status: Acute Assessment and Plan: 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 large arachnoid cyst Could also be from infection Continue to trend mental status continue home Remeron for sleep health (10) 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 While talking the patient you tell that she was very short of breath and that was really hard for to talk. She does appear dry according to mucous membranes however she does have pre get pitting edema. She denies any nausea, vomiting, diarrhea, constipation, chest pain, weakness or fatigue. She did state
[2022-05-29 10:04] LABS: Folic Acid 10.8 ng/mL (2.76->20)
[2022-05-29 12:26] LABS: Iron 32 ug/dL (37-170)
[2022-05-29 12:46] LABS: Percent Iron Saturation 14 % (20-50)
[2022-05-29] MEDS: FUROSEMIDE INJ 40 MG/4 ML VIAL IV PUSH (13:20)
[2022-05-29] MEDS: amLODIPine BESYLATE 5 MG TABLET PO (21:24)
[2022-05-30] VITALS (11 sets, daily range): BP systolic 104–138; BP diastolic 52–65; PULSE 60–89; RESP 16–18; TEMP 36.5–37; O2SAT 98–100
[2022-05-30 05:57] LABS: Basophils Percent Auto 0.3 % (0.2-1.2); Eosinophils Absolute Auto 0.6 K/mm3 (0-0.3); Eosinophils Percent Auto 6.1 % (0-4.4); Hematocrit 29.6 % (37.0-47.0); Hemoglobin 8.6 g/dL (12.0-15.0); Immature Granulocyte Absolute 0.04 K/mm3 (0.00-0.031); Immature Granulocyte Percent A 0.4 % (0-0.5); Lymphocytes Absolute Auto 0.91 K/mm3 (0.9-3.2); Lymphocytes Percent Auto 8.7 % (18.3-44.2); Mean Corpuscular HGB Conc 29.1 g/dl (32-36); Mean Corpuscular Hemoglobin 25.9 pg (26-34); Mean Corpuscular Volume 89.2 fl (80-100); Mean Platelet Volume 9.9 fl (7.4-10.4); Monocytes Absolute Auto 1.1 K/mm3 (0.1-0.6); Monocytes Percent Auto 10.7 % (2.6-8.5); Neutrophils Absolute Auto 7.8 K/mm3 (1.3-6.7); Neutrophils Percent Auto 73.8 % (45.5-73.1); Platelet Count Result 217 k/mm3 (150-375); Red Blood Count 3.32 M/mm3 (4.2-5.4); Red Cell Distribution Width 16.4 % (11.5-14.5); White Blood Count 10.5 K/mm3 (4.5-10.0)
[2022-05-30 06:11] LABS: Alanine Aminotransferase 9 U/L (6-35); Albumin Level 3.2 g/dL (3.5-5.1); Alkaline Phosphatase 58 U/L (38-126); Anion Gap 11 mmol/L (8-16); Aspartate Amino Transferase 19 U/L (14-36); Bilirubin,Total 0.3 mg/dL (0.2-1.3); Blood Urea Nitrogen 20 mg/dL (7-17); Calcium 9.2 mg/dL (8.4-10.2); Carbon Dioxide 33 mmol/L (22-30); Chloride 98 mmol/L (98-107); Estimated CRCL calculation 19 ml/min; Estimated Glomerular Filt Rate 20; Glucose 90 mg/dL (65-110); Magnesium 1.7 mg/dL (1.6-2.3); Potassium 2.9 mmol/L (3.4-5.0); Sodium 142 mmol/L (137-145)
--- NOTE | 2022-05-30 07:53 | PCOTNOTE ---
Attempted OT evaluation, patient declined at this time reporting stop it! . Will follow and attempt at later time.
[2022-05-30] MEDS: FLUTICASONE/UMECLIDIN/VILANTER 100-62.5-25 MCG ELLIPTA 1 PUFF INHALATION (08:35)
--- NOTE | 2022-05-30 09:31 | PCSTNOTE ---
Patient sleeping and unable to wake up. Will attempt bedside swallowing evaluation at another time.
--- NOTE | 2022-05-30 09:33 | PCPTNOTE ---
Attempted PT evaluation, patient declined at this time reporting stop it! . Will follow and attempt at later time.
[2022-05-30] MEDS: METOPROLOL TARTRATE 50 MG TAB PO (10:02)
[2022-05-30] MEDS: FUROSEMIDE INJ 40 MG/4 ML VIAL IV PUSH (10:02)
[2022-05-30] MEDS: SOLIFENACIN 5 MG TABLET 10 MG PO (10:02)
[2022-05-30] MEDS: ASPIRIN 81 MG CHEWABLE TABLET PO (10:02)
[2022-05-30] MEDS: SODIUM BICARBONATE TAB 650 MG TABLET 1300 MG PO (10:02)
--- NOTE | 2022-05-30 10:15 | PM.IMPN ---
Progress Note: A&P Assessment and Plan (1) Acute CHF (congestive heart failure): Qualifiers: Heart failure type: unspecified Qualified Code(s): I50.9 - Heart failure, unspecified Code(s): I50.9 - Heart failure, unspecified Status: Acute Assessment and Plan: Chest xray consistent with heart failure, pleural effusion and pulmonary edema Baseline trop negative BNP 72111 Supplement oxygen at 2L, wean to maintain saturation of >90% IV lasix 40mg BID for now Daily weights Strict I and Os Echo EF 65-70% with grade 2 diastolic dysfunction Probably an acute on chronic diastolic congestive heart failure exacerbation (2) Acute respiratory failure with hypoxia: Code(s): J96.01 - Acute respiratory failure with hypoxia Status: Acute Assessment and Plan: Presented with increase work of breathing, hypoxic, tripoding, and unabale to finish sentences Saturation on arrival was 84% Supplement oxygen provided, currently on room air ABG resp acidosis Continue to wean oxygen (3) Acute hypokalemia: Code(s): E87.6 - Hypokalemia Status: Acute Assessment and Plan: K is 2.9 Supplement with 40meq PO once, along with 40IV Redraw 1 hour post infusion Trend K Replace as indicated (4) Urinary tract infection: Qualifiers: Hematuria presence: with hematuria Urinary tract infection type: acute cystitis Qualified Code(s): N30.01 - Acute cystitis with hematuria Code(s): N39.0 - Urinary tract infection, site not specified Status: Acute Assessment and Plan: UA does appear to be infectious Ceftriaxone on board Urine culture pending Await culture results Adjust antibiotics to culture results (5) COPD (chronic obstructive pulmonary disease): Code(s): J44.9 - Chronic obstructive pulmonary disease, unspecified Status: Acute Assessment and Plan: Seems stable Chest xray paints more of a CHF picture Neb treatments trend respiratory status (6) HTN (hypertension): Code(s): I10 - Essential (primary) hypertension Status: Acute Assessment and Plan: BP 104/52 Continue amlodipine 5mg PO QHS, Metoprolol 50mg PO BID Continue to trend BP Adjust therapy as indicated (7) Overactive bladder: Code(s): N32.81 - Overactive bladder Status: Acute Assessment and Plan: Continue Vesicare (8) Hallucinations: Code(s): R44.3 - Hallucinations, unspecified Status: Acute Assessment and Plan: Continue to monitor Could be related to infection Head CT found a cyst (9) Acute metabolic encephalopathy: Code(s): G93.41 - Metabolic encephalopathy Status: Acute Assessment and Plan: 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 large arachnoid cyst Could also be from infection Continue to trend mental status Hold Remeron Urine culture still pending (10) 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 cysts Status: Acute Assessment and Plan: Found on ct Outpatient follow up (11) Anemia: Code(s): D64.9 - Anemia, unspecified Status: Acute Assessment and Plan: H/H 8.6/29.6 Anemia studies iron 32, TIBC 231, % sat 14, Transferrin 166, Ferritin 165, B12 429, Folate 10.8 Start ferrous sulfate Trend H/H Adjust therapy as indicated Appears to be a combination of iron deficiency and anemia of chronic disease (12) Urinary retention: Code(s): R33.9 - Retention of urine, unspecified Status: Acute Assessment and Plan: Bladder scanner found >500ml Urinary catheter inserted Trend urine output Start tamsulosin Time Spent With Patient Time with patient: Greater than 35 minutes Subjective Date/time seen: 05/30/22 1015 Interval history: 05/30/22 1015 Patient appears to be ve
--- NOTE | 2022-05-30 10:15 | P.PNIM_ITS ---
Progress Note: A&P Assessment and Plan (1) Acute CHF (congestive heart failure): Qualifiers: Heart failure type: unspecified Qualified Code(s): I50.9 - Heart failure, unspecified Code(s): I50.9 - Heart failure, unspecified Status: Acute Assessment and Plan: * Chest xray consistent with heart failure, pleural effusion and pulmonary edema * Baseline trop negative * BNP 31771 * Supplement oxygen at 2L, wean to maintain saturation of >90% * IV lasix 40mg BID for now * Daily weights * Strict I and Os * Echo EF 65-70% with grade 2 diastolic dysfunction * Probably an acute on chronic diastolic congestive heart failure exacerbation (2) Acute respiratory failure with hypoxia: Code(s): J96.01 - Acute respiratory failure with hypoxia Status: Acute Assessment and Plan: * Presented with increase work of breathing, hypoxic, tripoding, and unabale to finish sentences * Saturation on arrival was 84% * Supplement oxygen provided, currently on room air * ABG resp acidosis * Continue to wean oxygen (3) Acute hypokalemia: Code(s): E87.6 - Hypokalemia Status: Acute Assessment and Plan: * K is 2.9 * Supplement with 40meq PO once, along with 40IV * Redraw 1 hour post infusion * Trend K * Replace as indicated (4) Urinary tract infection: Qualifiers: Hematuria presence: with hematuria Urinary tract infection type: acute cystitis Qualified Code(s): N30.01 - Acute cystitis with hematuria Code(s): N39.0 - Urinary tract infection, site not specified Status: Acute Assessment and Plan: * UA does appear to be infectious * Ceftriaxone on board * Urine culture pending * Await culture results * Adjust antibiotics to culture results (5) COPD (chronic obstructive pulmonary disease): Code(s): J44.9 - Chronic obstructive pulmonary disease, unspecified Status: Acute Assessment and Plan: * Seems stable * Chest xray paints more of a CHF picture * Neb treatments * trend respiratory status (6) HTN (hypertension): Code(s): I10 - Essential (primary) hypertension Status: Acute Assessment and Plan: * BP 104/52 * Continue amlodipine 5mg PO QHS, Metoprolol 50mg PO BID * Continue to trend BP * Adjust therapy as indicated (7) Overactive bladder: Code(s): N32.81 - Overactive bladder Status: Acute Assessment and Plan: * Continue Vesicare (8) Hallucinations: Code(s): R44.3 - Hallucinations, unspecified Status: Acute Assessment and Plan: * Continue to monitor * Could be related to infection * Head CT found a cyst (9) Acute metabolic encephalopathy: Code(s): G93.41 - Metabolic encephalopathy Status: Acute Assessment and Plan: * 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
--- NOTE | 2022-05-30 14:07 | PCOTNOTE ---
Attempted OT evaluation, patient sleepy at this time, will attempt at later time.
--- NOTE | 2022-05-30 14:07 | PCPTNOTE ---
Attempted PT evaluation this afternoon, pt sleepy, will attempt at a later date/time.
[2022-05-30] MEDS: POTASSIUM CHLORIDE INJ 40 MEQ in SODIUM CHLORIDE 0.9% IV 500 ML 130 MEQ IVPB (15:10)
--- NOTE | 2022-05-30 17:52 | PC.NURSE ---
Patient has been solement all day. Ildefonso Husain NP has seen the patient this morning in this state and believes she is tired r/t not sleeping last night and combination of UTI/pneumonia. Patient able to mumble responses to questions but does not keep eyes open or follow commands. Vital signs are stable and patient is on telemetry.
[2022-05-30] MEDS: amLODIPine BESYLATE 5 MG TABLET PO (20:05)
[2022-05-31] VITALS (18 sets, daily range): BP systolic 100–128; BP diastolic 50–80; PULSE 62–86; RESP 16–18; TEMP 36.1–36.4; O2SAT 92–99
[2022-05-31 05:33] LABS: Basophils Percent Auto 0.2 % (0.2-1.2); Eosinophils Absolute Auto 0.6 K/mm3 (0-0.3); Eosinophils Percent Auto 6.3 % (0-4.4); Hemoglobin 8.5 g/dL (12.0-15.0); Immature Granulocyte Absolute 0.04 K/mm3 (0.00-0.031); Immature Granulocyte Percent A 0.4 % (0-0.5); Lymphocytes Absolute Auto 0.94 K/mm3 (0.9-3.2); Lymphocytes Percent Auto 10.2 % (18.3-44.2); Mean Corpuscular HGB Conc 29.3 g/dl (32-36); Mean Corpuscular Hemoglobin 26.2 pg (26-34); Mean Corpuscular Volume 89.2 fl (80-100); Mean Platelet Volume 10.1 fl (7.4-10.4); Monocytes Absolute Auto 0.8 K/mm3 (0.1-0.6); Monocytes Percent Auto 9.1 % (2.6-8.5); Neutrophils Absolute Auto 6.8 K/mm3 (1.3-6.7); Neutrophils Percent Auto 73.8 % (45.5-73.1); Platelet Count Result 178 k/mm3 (150-375); Red Blood Count 3.25 M/mm3 (4.2-5.4); Red Cell Distribution Width 15.9 % (11.5-14.5); White Blood Count 9.2 K/mm3 (4.5-10.0)
[2022-05-31 05:50] LABS: Alanine Aminotransferase 8 U/L (6-35); Albumin Level 2.9 g/dL (3.5-5.1); Alkaline Phosphatase 63 U/L (38-126); Anion Gap 11 mmol/L (8-16); Aspartate Amino Transferase 20 U/L (14-36); Bilirubin,Total 0.4 mg/dL (0.2-1.3); Blood Urea Nitrogen 22 mg/dL (7-17); Calcium 9.1 mg/dL (8.4-10.2); Carbon Dioxide 33 mmol/L (22-30); Chloride 96 mmol/L (98-107); Estimated CRCL calculation 18 ml/min; Estimated Glomerular Filt Rate 21; Glucose 80 mg/dL (65-110); Magnesium 1.7 mg/dL (1.6-2.3); Potassium 3.2 mmol/L (3.4-5.0); Sodium 140 mmol/L (137-145)
[2022-05-31] MEDS: FLUTICASONE/UMECLIDIN/VILANTER 100-62.5-25 MCG ELLIPTA 1 PUFF INHALATION (08:39)
[2022-05-31] MEDS: SODIUM BICARBONATE TAB 650 MG TABLET 1300 MG PO ×2 (09:24→16:49)
[2022-05-31] MEDS: ASPIRIN 81 MG CHEWABLE TABLET PO (09:24)
[2022-05-31] MEDS: METOPROLOL TARTRATE 50 MG TAB PO ×2 (09:24→16:50)
[2022-05-31] MEDS: SOLIFENACIN 5 MG TABLET 10 MG PO (09:25)
[2022-05-31] MEDS: TAMSULOSIN HCL 0.4 MG CAPSULE PO (09:25)
--- NOTE | 2022-05-31 11:30 | PM.IMPN ---
Progress Note: A&P Assessment and Plan (1) Acute CHF (congestive heart failure): Qualifiers: Heart failure type: unspecified Qualified Code(s): I50.9 - Heart failure, unspecified Code(s): I50.9 - Heart failure, unspecified Status: Acute Assessment and Plan: Chest xray consistent with heart failure, pleural effusion and pulmonary edema Baseline trop negative BNP 05061 Supplement oxygen at 2L, wean to maintain saturation of >90% IV lasix 40mg BID for now Daily weights Strict I and Os Echo EF 65-70% with grade 2 diastolic dysfunction Probably an acute on chronic diastolic congestive heart failure exacerbation (2) Acute respiratory failure with hypoxia: Code(s): J96.01 - Acute respiratory failure with hypoxia Status: Acute Assessment and Plan: Presented with increase work of breathing, hypoxic, tripoding, and unabale to finish sentences Saturation on arrival was 84% Supplement oxygen provided, currently on room air ABG resp acidosis Continue to wean oxygen On room air, seems to be resolved (3) Acute hypokalemia: Code(s): E87.6 - Hypokalemia Status: Acute Assessment and Plan: K is 3.2 Supplement with 40meq PO once Trend K Replace as indicated (4) Urinary tract infection: Qualifiers: Hematuria presence: with hematuria Urinary tract infection type: acute cystitis Qualified Code(s): N30.01 - Acute cystitis with hematuria Code(s): N39.0 - Urinary tract infection, site not specified Status: Acute Assessment and Plan: UA does appear to be infectious Ceftriaxone on board, can be DC's Urine culture grew what appears to be colonized bacteria Resolved (5) COPD (chronic obstructive pulmonary disease): Code(s): J44.9 - Chronic obstructive pulmonary disease, unspecified Status: Acute Assessment and Plan: Seems stable Chest xray paints more of a CHF picture Neb treatments trend respiratory status (6) HTN (hypertension): Code(s): I10 - Essential (primary) hypertension Status: Acute Assessment and Plan: BP 128/80 Continue amlodipine 5mg PO QHS, Metoprolol 50mg PO BID Continue to trend BP Adjust therapy as indicated (7) Overactive bladder: Code(s): N32.81 - Overactive bladder Status: Acute Assessment and Plan: Continue Vesicare (8) Hallucinations: Code(s): R44.3 - Hallucinations, unspecified Status: Acute Assessment and Plan: Continue to monitor Could be related to infection Head CT found a cyst (9) Acute metabolic encephalopathy: Code(s): G93.41 - Metabolic encephalopathy Status: Acute Assessment and Plan: 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 large arachnoid cyst Think that she might be having some dementia Continue to trend mental status Hold Remeron Seems better Urine does not indicate infection (10) 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 cysts Status: Acute Assessment and Plan: Found on ct Outpatient follow up (11) Anemia: Code(s): D64.9 - Anemia, unspecified Status: Acute Assessment and Plan: H/H 8.5/29.0 Anemia studies iron 32, TIBC 231, % sat 14, Transferrin 166, Ferritin 165, B12 429, Folate 10.8 Start ferrous sulfate Trend H/H Adjust therapy as indicated Appears to be a combination of iron deficiency and anemia of chronic disease (12) Urinary retention: Code(s): R33.9 - Retention of urine, unspecified Status: Acute Assessment and Plan: Bladder scanner found >500ml Urinary catheter inserted Trend urine output Start tamsulosin (13) Dysphasia: Code(s): R47.02 - Dysphasia Status: Acute Assessment and Plan: Speech recommends a minced and moist with mildly thickened liq
--- NOTE | 2022-05-31 11:30 | P.PNIM_ITS ---
Progress Note: A&P Assessment and Plan (1) Acute CHF (congestive heart failure): Qualifiers: Heart failure type: unspecified Qualified Code(s): I50.9 - Heart failure, unspecified Code(s): I50.9 - Heart failure, unspecified Status: Acute Assessment and Plan: * Chest xray consistent with heart failure, pleural effusion and pulmonary edema * Baseline trop negative * BNP 58567 * Supplement oxygen at 2L, wean to maintain saturation of >90% * IV lasix 40mg BID for now * Daily weights * Strict I and Os * Echo EF 65-70% with grade 2 diastolic dysfunction * Probably an acute on chronic diastolic congestive heart failure exacerbation (2) Acute respiratory failure with hypoxia: Code(s): J96.01 - Acute respiratory failure with hypoxia Status: Acute Assessment and Plan: * Presented with increase work of breathing, hypoxic, tripoding, and unabale to finish sentences * Saturation on arrival was 84% * Supplement oxygen provided, currently on room air * ABG resp acidosis * Continue to wean oxygen * On room air, seems to be resolved (3) Acute hypokalemia: Code(s): E87.6 - Hypokalemia Status: Acute Assessment and Plan: * K is 3.2 * Supplement with 40meq PO once * Trend K * Replace as indicated (4) Urinary tract infection: Qualifiers: Hematuria presence: with hematuria Urinary tract infection type: acute cystitis Qualified Code(s): N30.01 - Acute cystitis with hematuria Code(s): N39.0 - Urinary tract infection, site not specified Status: Acute Assessment and Plan: * UA does appear to be infectious * Ceftriaxone on board, can be DC's * Urine culture grew what appears to be colonized bacteria * Resolved (5) COPD (chronic obstructive pulmonary disease): Code(s): J44.9 - Chronic obstructive pulmonary disease, unspecified Status: Acute Assessment and Plan: * Seems stable * Chest xray paints more of a CHF picture * Neb treatments * trend respiratory status (6) HTN (hypertension): Code(s): I10 - Essential (primary) hypertension Status: Acute Assessment and Plan: * BP 128/80 * Continue amlodipine 5mg PO QHS, Metoprolol 50mg PO BID * Continue to trend BP * Adjust therapy as indicated (7) Overactive bladder: Code(s): N32.81 - Overactive bladder Status: Acute Assessment and Plan: * Continue Vesicare (8) Hallucinations: Code(s): R44.3 - Hallucinations, unspecified Status: Acute Assessment and Plan: * Continue to monitor * Could be related to infection * Head CT found a cyst (9) Acute metabolic encephalopathy: Code(s): G93.41 - Metabolic encephalopathy Status: Acute Assessment and Plan: * 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 large arachnoid cyst * Think that she might be having some dementia * Continue to trend mental status * Hold Remeron * Seems better * Urine does not indicate infection (10) 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 cysts Status: Acute Assessment and Plan: * Found on ct * Outpatient follow up (11) Anemia: Code(s): D64.9 - Anemia, unspecified Status: Acute Assessment and Plan: * H/H 8.
[2022-05-31] MEDS: POTASSIUM CHLORIDE 20 MEQ TABLET 40 MEQ PO (12:35)
[2022-05-31] MEDS: MAGNESIUM SULF 2 GM/WATER 50ML 2 GM/50 ML BAG IVPB (12:35)
--- NOTE | 2022-05-31 13:47 | PCSTNOTE ---
Patient seen for modified barium swallow study (MBSS) today. Residue with all consistencies, trace penetration observed with initial thin liquid bolus by spoon. With all consistencies residue was reduced with additional swallow(s) but not completely cleared. Patient required multiple cues to produce repeat swallows. Recommended diet texture and liquid consistency for this patient is level 5/minced and moist and mildly thickened liquids (nectar/level 2). Speech therapy for swallowing is recommended. Thank you for the referral of this patient.
[2022-05-31] MEDS: ENOXAPARIN 30 MG/0.3 ML SYRINGE SUB-Q (14:11)
[2022-05-31] MEDS: FUROSEMIDE INJ 40 MG/4 ML VIAL IV PUSH (16:49)
[2022-05-31] MEDS: ALBUTEROL SULFATE NEB 2.5 MG/3 ML INH INHALATION ×2 (17:19→19:44)
[2022-05-31 17:56] LABS: Troponin I 0.013 ng/mL (0.000-0.034)
[2022-06-01] VITALS (23 sets, daily range): BP systolic 107–126; BP diastolic 52–71; PULSE 56–86; RESP 16–22; TEMP 36.3–36.8; O2SAT 96–99
[2022-06-01] MEDS: ALBUTEROL SULFATE NEB 2.5 MG/3 ML INH INHALATION ×6 (00:07→19:55)
[2022-06-01 06:01] LABS: Basophils Percent Auto 0.3 % (0.2-1.2); Eosinophils Absolute Auto 0.4 K/mm3 (0-0.3); Eosinophils Percent Auto 5.7 % (0-4.4); Hematocrit 26.3 % (37.0-47.0); Hemoglobin 7.9 g/dL (12.0-15.0); Immature Granulocyte Absolute 0.03 K/mm3 (0.00-0.031); Immature Granulocyte Percent A 0.5 % (0-0.5); Lymphocytes Absolute Auto 0.98 K/mm3 (0.9-3.2); Lymphocytes Percent Auto 14.8 % (18.3-44.2); Mean Corpuscular Hemoglobin 26.2 pg (26-34); Mean Corpuscular Volume 87.4 fl (80-100); Mean Platelet Volume 10.2 fl (7.4-10.4); Monocytes Absolute Auto 0.7 K/mm3 (0.1-0.6); Monocytes Percent Auto 10.9 % (2.6-8.5); Neutrophils Absolute Auto 4.5 K/mm3 (1.3-6.7); Neutrophils Percent Auto 67.8 % (45.5-73.1); Platelet Count Result 155 k/mm3 (150-375); Red Blood Count 3.01 M/mm3 (4.2-5.4); Red Cell Distribution Width 16.1 % (11.5-14.5); White Blood Count 6.6 K/mm3 (4.5-10.0)
[2022-06-01 06:10] LABS: Alanine Aminotransferase 11 U/L (6-35); Albumin Level 2.8 g/dL (3.5-5.1); Alkaline Phosphatase 78 U/L (38-126); Anion Gap 8 mmol/L (8-16); Aspartate Amino Transferase 21 U/L (14-36); Bilirubin,Total 0.3 mg/dL (0.2-1.3); Blood Urea Nitrogen 24 mg/dL (7-17); Calcium 9.4 mg/dL (8.4-10.2); Carbon Dioxide 33 mmol/L (22-30); Chloride 95 mmol/L (98-107); Estimated CRCL calculation 19 ml/min; Estimated Glomerular Filt Rate 22; Glucose 82 mg/dL (65-110); Magnesium 2.1 mg/dL (1.6-2.3); Potassium 2.9 mmol/L (3.4-5.0); Sodium 136 mmol/L (137-145)
[2022-06-01] MEDS: FLUTICASONE/UMECLIDIN/VILANTER 100-62.5-25 MCG ELLIPTA 1 PUFF INHALATION (08:45)
[2022-06-01] MEDS: ASPIRIN 81 MG CHEWABLE TABLET PO (09:06)
[2022-06-01] MEDS: FERROUS SULFATE 324 MG TABLET PO ×2 (09:06→17:13)
[2022-06-01] MEDS: TAMSULOSIN HCL 0.4 MG CAPSULE PO (09:07)
[2022-06-01] MEDS: SODIUM BICARBONATE TAB 650 MG TABLET 1300 MG PO ×2 (09:07→17:13)
[2022-06-01] MEDS: SOLIFENACIN 5 MG TABLET 10 MG PO (09:07)
[2022-06-01] MEDS: POTASSIUM CHLORIDE 20 MEQ TABLET 40 MEQ PO (09:12)
[2022-06-01] MEDS: METOPROLOL TARTRATE 50 MG TAB PO ×2 (10:11→17:14)
[2022-06-01] MEDS: FUROSEMIDE INJ 40 MG/4 ML VIAL IV PUSH ×2 (10:12→17:13)
--- NOTE | 2022-06-01 10:45 | P.PNIM_ITS ---
Progress Note: A&P Assessment and Plan (1) Acute CHF (congestive heart failure): Qualifiers: Heart failure type: unspecified Qualified Code(s): I50.9 - Heart failure, unspecified Code(s): I50.9 - Heart failure, unspecified Status: Acute Assessment and Plan: * Chest xray consistent with heart failure, pleural effusion and pulmonary edema * Baseline trop negative * BNP 93809 * Supplement oxygen, wean to maintain saturation of >90% * IV lasix 40mg BID for now * Daily weights * Strict I and Os * Echo EF 65-70% with grade 2 diastolic dysfunction * Acute on chronic diastolic congestive heart failure exacerbation (2) Pneumonia: Code(s): J18.9 - Pneumonia, unspecified organism Status: Acute Assessment and Plan: * Chest xray from 05/31/22 showed worsening pulmonary infiltrates * Ceftriaxone restarted, completed full dose of azithromycin * WBC 6.6 today * Neb treatments * sputum culture ordered * Pneumococcal ordered * Steroids started (3) Eosinophilia: Code(s): D72.10 - Eosinophilia, unspecified Status: Acute Assessment and Plan: * Eosinophils elevated at 5.7 * Start methylprednisone 40mg Q6H * Trend labs * Urine eosinophil pending * Seems to be from a respiratory source * Antibiotics on board (4) Acute respiratory failure with hypoxia: Code(s): J96.01 - Acute respiratory failure with hypoxia Status: Acute Assessment and Plan: * Presented with increase work of breathing, hypoxic, tripoding, and unabale to finish sentences * Saturation on arrival was 84% * Supplement oxygen provided, currently on room air * ABG resp acidosis * Continue to wean oxygen * On room air, seems to be resolved (5) Acute hypokalemia: Code(s): E87.6 - Hypokalemia Status: Acute Assessment and Plan: * K is 2.9 * Supplement with 40meq PO and 40IV * Recheck 1 hour post infusion * Trend K * Replace as indicated (6) Urinary tract infection: Qualifiers: Hematuria presence: with hematuria Urinary tract infection type: acute cystitis Qualified Code(s): N30.01 - Acute cystitis with hematuria Code(s): N39.0 - Urinary tract infection, site not specified Status: Acute Assessment and Plan: * Resolved * UA does appear to be infectious * Ceftriaxone on board, can be DC's * Urine culture grew what appears to be colonized bacteria * Resolved (7) COPD (chronic obstructive pulmonary disease): Code(s): J44.9 - Chronic obstructive pulmonary disease, unspecified Status: Acute Assessment and Plan: * Seems stable * Increased shortness of breath, increased wheezes * PNA could be exacerbating her COPD * Chest xray paints more of a CHF picture * Neb treatments * trend respiratory status * Steroid started (8) HTN (hypertension): Code(s): I10 - Essential (primary) hypertension Status: Acute Assessment and Plan: * BP 107/52 * Continue amlodipine 5mg PO QHS, Metoprolol 50mg PO BID * Continue to trend BP * Adjust therapy as indicated (9) Overactive bladder: Code(s): N32.81 - Overactive bladder Status: Acute Assessment and Plan: * Continue Vesicare (10) Hallucinations: Code(s): R44.
--- NOTE | 2022-06-01 10:45 | PM.IMPN ---
Progress Note: A&P Assessment and Plan (1) Acute CHF (congestive heart failure): Qualifiers: Heart failure type: unspecified Qualified Code(s): I50.9 - Heart failure, unspecified Code(s): I50.9 - Heart failure, unspecified Status: Acute Assessment and Plan: Chest xray consistent with heart failure, pleural effusion and pulmonary edema Baseline trop negative BNP 71160 Supplement oxygen, wean to maintain saturation of >90% IV lasix 40mg BID for now Daily weights Strict I and Os Echo EF 65-70% with grade 2 diastolic dysfunction Acute on chronic diastolic congestive heart failure exacerbation (2) Pneumonia: Code(s): J18.9 - Pneumonia, unspecified organism Status: Acute Assessment and Plan: Chest xray from 05/31/22 showed worsening pulmonary infiltrates Ceftriaxone restarted, completed full dose of azithromycin WBC 6.6 today Neb treatments sputum culture ordered Pneumococcal ordered Steroids started (3) Eosinophilia: Code(s): D72.10 - Eosinophilia, unspecified Status: Acute Assessment and Plan: Eosinophils elevated at 5.7 Start methylprednisone 40mg Q6H Trend labs Urine eosinophil pending Seems to be from a respiratory source Antibiotics on board (4) Acute respiratory failure with hypoxia: Code(s): J96.01 - Acute respiratory failure with hypoxia Status: Acute Assessment and Plan: Presented with increase work of breathing, hypoxic, tripoding, and unabale to finish sentences Saturation on arrival was 84% Supplement oxygen provided, currently on room air ABG resp acidosis Continue to wean oxygen On room air, seems to be resolved (5) Acute hypokalemia: Code(s): E87.6 - Hypokalemia Status: Acute Assessment and Plan: K is 2.9 Supplement with 40meq PO and 40IV Recheck 1 hour post infusion Trend K Replace as indicated (6) Urinary tract infection: Qualifiers: Hematuria presence: with hematuria Urinary tract infection type: acute cystitis Qualified Code(s): N30.01 - Acute cystitis with hematuria Code(s): N39.0 - Urinary tract infection, site not specified Status: Acute Assessment and Plan: Resolved UA does appear to be infectious Ceftriaxone on board, can be DC's Urine culture grew what appears to be colonized bacteria Resolved (7) COPD (chronic obstructive pulmonary disease): Code(s): J44.9 - Chronic obstructive pulmonary disease, unspecified Status: Acute Assessment and Plan: Seems stable Increased shortness of breath, increased wheezes PNA could be exacerbating her COPD Chest xray paints more of a CHF picture Neb treatments trend respiratory status Steroid started (8) HTN (hypertension): Code(s): I10 - Essential (primary) hypertension Status: Acute Assessment and Plan: BP 107/52 Continue amlodipine 5mg PO QHS, Metoprolol 50mg PO BID Continue to trend BP Adjust therapy as indicated (9) Overactive bladder: Code(s): N32.81 - Overactive bladder Status: Acute Assessment and Plan: Continue Vesicare (10) Hallucinations: Code(s): R44.3 - Hallucinations, unspecified Status: Acute Assessment and Plan: Continue to monitor Could be related to infection Head CT found a cyst (11) Acute metabolic encephalopathy: Code(s): G93.41 - Metabolic encephalopathy Status: Acute Assessment and Plan: 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 large arachnoid cyst Think that she might be having some dementia Continue to trend mental status Hold Remeron Seems better Urine does not indicate infection Seems to be resolved (12) 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 cysts Status: Acute Assessment and Plan: Found on
[2022-06-01] MEDS: POTASSIUM CHLORIDE INJ 40 MEQ in SODIUM CHLORIDE 0.9% IV 500 ML 130 MEQ IVPB (11:11)
[2022-06-01] MEDS: ENOXAPARIN 30 MG/0.3 ML SYRINGE SUB-Q (12:54)
[2022-06-01] MEDS: methylPREDNISolone SOD SUCC 40 MG VIAL IV PUSH ×2 (13:43→17:13)
[2022-06-01 15:47] LABS: Pneumococcal Antigen Urine Not Detected (Not Detected)
[2022-06-01 17:03] LABS: Potassium 3.8 mmol/L (3.4-5.0)
[2022-06-01] MEDS: amLODIPine BESYLATE 5 MG TABLET PO (20:38)
[2022-06-02] VITALS (22 sets, daily range): BP systolic 126–129; BP diastolic 65–71; PULSE 78–96; RESP 16–22; TEMP 36.2–36.9; O2SAT 94–100
[2022-06-02] MEDS: ALBUTEROL SULFATE NEB 2.5 MG/3 ML INH INHALATION ×5 (00:19→20:18)
--- NOTE | 2022-06-02 00:24 | PCRCNOTE ---
pt is very confused at 0000 during UPD treatment. pt stating she does not know where she is and does not believe she is in the hospital. RN informed.
[2022-06-02] MEDS: methylPREDNISolone SOD SUCC 40 MG VIAL IV PUSH ×2 (05:11→12:19)
[2022-06-02 05:39] LABS: Basophils Percent Auto 0.3 % (0.2-1.2); Eosinophils Percent Auto 0.3 % (0-4.4); Hematocrit 26.9 % (37.0-47.0); Hemoglobin 8.2 g/dL (12.0-15.0); Immature Granulocyte Absolute 0.01 K/mm3 (0.00-0.031); Immature Granulocyte Percent A 0.3 % (0-0.5); Lymphocytes Absolute Auto 0.46 K/mm3 (0.9-3.2); Lymphocytes Percent Auto 12.5 % (18.3-44.2); Mean Corpuscular HGB Conc 30.5 g/dl (32-36); Mean Corpuscular Hemoglobin 25.9 pg (26-34); Mean Corpuscular Volume 85.1 fl (80-100); Mean Platelet Volume 10.3 fl (7.4-10.4); Monocytes Absolute Auto 0.1 K/mm3 (0.1-0.6); Monocytes Percent Auto 2.4 % (2.6-8.5); Neutrophils Absolute Auto 3.1 K/mm3 (1.3-6.7); Neutrophils Percent Auto 84.2 % (45.5-73.1); Platelet Count Result 175 k/mm3 (150-375); Red Blood Count 3.16 M/mm3 (4.2-5.4); Red Cell Distribution Width 16.2 % (11.5-14.5); White Blood Count 3.7 K/mm3 (4.5-10.0)
[2022-06-02 05:52] LABS: Alanine Aminotransferase 13 U/L (6-35); Albumin Level 3.4 g/dL (3.5-5.1); Alkaline Phosphatase 81 U/L (38-126); Anion Gap 12 mmol/L (8-16); Aspartate Amino Transferase 19 U/L (14-36); Bilirubin,Total 0.3 mg/dL (0.2-1.3); Blood Urea Nitrogen 25 mg/dL (7-17); Calcium 9.8 mg/dL (8.4-10.2); Carbon Dioxide 33 mmol/L (22-30); Chloride 93 mmol/L (98-107); Estimated CRCL calculation 16 ml/min; Estimated Glomerular Filt Rate 21; Glucose 145 mg/dL (65-110); Potassium 3.5 mmol/L (3.4-5.0); Sodium 138 mmol/L (137-145)
[2022-06-02] MEDS: FLUTICASONE/UMECLIDIN/VILANTER 100-62.5-25 MCG ELLIPTA 1 PUFF INHALATION (08:58)
[2022-06-02] MEDS: SOLIFENACIN 5 MG TABLET 10 MG PO (09:39)
[2022-06-02] MEDS: FERROUS SULFATE 324 MG TABLET PO ×2 (09:39→17:29)
[2022-06-02] MEDS: ASPIRIN 81 MG CHEWABLE TABLET PO (09:39)
[2022-06-02] MEDS: TAMSULOSIN HCL 0.4 MG CAPSULE PO (09:40)
[2022-06-02] MEDS: SODIUM BICARBONATE TAB 650 MG TABLET 1300 MG PO ×2 (09:40→17:29)
[2022-06-02] MEDS: METOPROLOL TARTRATE 50 MG TAB PO ×2 (09:41→17:29)
[2022-06-02] MEDS: FUROSEMIDE INJ 40 MG/4 ML VIAL IV PUSH (09:41)
--- NOTE | 2022-06-02 11:15 | PM.IMPN ---
Progress Note: A&P Assessment and Plan (1) Acute CHF (congestive heart failure): Qualifiers: Heart failure type: unspecified Qualified Code(s): I50.9 - Heart failure, unspecified Code(s): I50.9 - Heart failure, unspecified Status: Acute Assessment and Plan: Chest xray consistent with heart failure, pleural effusion and pulmonary edema Baseline trop negative BNP 86914 Supplement oxygen, wean to maintain saturation of >90% IV lasix 40mg BID, changed to PO 40mg Daily Daily weights Strict I and Os Echo EF 65-70% with grade 2 diastolic dysfunction Acute on chronic diastolic congestive heart failure exacerbation (2) Pneumonia: Code(s): J18.9 - Pneumonia, unspecified organism Status: Acute Assessment and Plan: Chest xray from 05/31/22 showed worsening pulmonary infiltrates Ceftriaxone changed to cefdinir for 3 more days WBC 3.7 today Neb treatments sputum culture ordered Pneumococcal not detected Steroids prednisone 40mg PO for 4 days (3) Eosinophilia: Code(s): D72.10 - Eosinophilia, unspecified Status: Acute Assessment and Plan: Eosinophils elevated at 5.7, down to 0.3 today Change methylprednisone 40mg, to prednisone 40mg PO x 4 days Trend labs Urine eosinophil none seen Seems to be from a respiratory source Antibiotics on board (4) Acute respiratory failure with hypoxia: Code(s): J96.01 - Acute respiratory failure with hypoxia Status: Acute Assessment and Plan: Presented with increase work of breathing, hypoxic, tripoding, and unable to finish sentences Saturation on arrival was 84% Supplement oxygen provided, currently on room air ABG resp acidosis Continue to wean oxygen On room air, seems to be resolved (5) Acute hypokalemia: Code(s): E87.6 - Hypokalemia Status: Acute Assessment and Plan: K is 3.5 Supplement as indicated Trend K Replace as indicated (6) Urinary tract infection: Qualifiers: Hematuria presence: with hematuria Urinary tract infection type: acute cystitis Qualified Code(s): N30.01 - Acute cystitis with hematuria Code(s): N39.0 - Urinary tract infection, site not specified Status: Acute Assessment and Plan: Resolved UA does appear to be infectious Ceftriaxone on board, can be DC's Urine culture grew what appears to be colonized bacteria Resolved (7) COPD (chronic obstructive pulmonary disease): Code(s): J44.9 - Chronic obstructive pulmonary disease, unspecified Status: Acute Assessment and Plan: Seems stable Increased shortness of breath, increased wheezes PNA could be exacerbating her COPD Chest xray paints more of a CHF picture Neb treatments trend respiratory status Steroid started Better after the start of steroid, probably an acute exacerbation (8) HTN (hypertension): Code(s): I10 - Essential (primary) hypertension Status: Acute Assessment and Plan: BP 126/65 Continue amlodipine 5mg PO QHS, Metoprolol 50mg PO BID Continue to trend BP Adjust therapy as indicated (9) Overactive bladder: Code(s): N32.81 - Overactive bladder Status: Acute Assessment and Plan: Continue Vesicare (10) Hallucinations: Code(s): R44.3 - Hallucinations, unspecified Status: Acute Assessment and Plan: Continue to monitor Could be related to infection Head CT found a cyst (11) Acute metabolic encephalopathy: Code(s): G93.41 - Metabolic encephalopathy Status: Acute Assessment and Plan: 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 large arachnoid cyst Think that she might be having some dementia Continue to trend mental status Hold Remeron Seems better Urine does not indicate infection Seems to be resolved (12) Arachnoi
--- NOTE | 2022-06-02 11:15 | P.PNIM_ITS ---
Progress Note: A&P Assessment and Plan (1) Acute CHF (congestive heart failure): Qualifiers: Heart failure type: unspecified Qualified Code(s): I50.9 - Heart failure, unspecified Code(s): I50.9 - Heart failure, unspecified Status: Acute Assessment and Plan: * Chest xray consistent with heart failure, pleural effusion and pulmonary edema * Baseline trop negative * BNP 01951 * Supplement oxygen, wean to maintain saturation of >90% * IV lasix 40mg BID, changed to PO 40mg Daily * Daily weights * Strict I and Os * Echo EF 65-70% with grade 2 diastolic dysfunction * Acute on chronic diastolic congestive heart failure exacerbation (2) Pneumonia: Code(s): J18.9 - Pneumonia, unspecified organism Status: Acute Assessment and Plan: * Chest xray from 05/31/22 showed worsening pulmonary infiltrates * Ceftriaxone changed to cefdinir for 3 more days * WBC 3.7 today * Neb treatments * sputum culture ordered * Pneumococcal not detected * Steroids prednisone 40mg PO for 4 days (3) Eosinophilia: Code(s): D72.10 - Eosinophilia, unspecified Status: Acute Assessment and Plan: * Eosinophils elevated at 5.7, down to 0.3 today * Change methylprednisone 40mg, to prednisone 40mg PO x 4 days * Trend labs * Urine eosinophil none seen * Seems to be from a respiratory source * Antibiotics on board (4) Acute respiratory failure with hypoxia: Code(s): J96.01 - Acute respiratory failure with hypoxia Status: Acute Assessment and Plan: * Presented with increase work of breathing, hypoxic, tripoding, and unable to finish sentences * Saturation on arrival was 84% * Supplement oxygen provided, currently on room air * ABG resp acidosis * Continue to wean oxygen * On room air, seems to be resolved (5) Acute hypokalemia: Code(s): E87.6 - Hypokalemia Status: Acute Assessment and Plan: * K is 3.5 * Supplement as indicated * Trend K * Replace as indicated (6) Urinary tract infection: Qualifiers: Hematuria presence: with hematuria Urinary tract infection type: acute cystitis Qualified Code(s): N30.01 - Acute cystitis with hematuria Code(s): N39.0 - Urinary tract infection, site not specified Status: Acute Assessment and Plan: * Resolved * UA does appear to be infectious * Ceftriaxone on board, can be DC's * Urine culture grew what appears to be colonized bacteria * Resolved (7) COPD (chronic obstructive pulmonary disease): Code(s): J44.9 - Chronic obstructive pulmonary disease, unspecified Status: Acute Assessment and Plan: * Seems stable * Increased shortness of breath, increased wheezes * PNA could be exacerbating her COPD * Chest xray paints more of a CHF picture * Neb treatments * trend respiratory status * Steroid started * Better after the start of steroid, probably an acute exacerbation (8) HTN (hypertension): Code(s): I10 - Essential (primary) hypertension Status: Acute Assessment and Plan: * BP 126/65 * Continue amlodipine 5mg PO QHS, Metoprolol 50mg PO BID * Continue to trend BP * Adjust therapy as indicated (9) Overactive bladder: Code(s): N32.81 - Overactive bladder Status: Acute Assessment and Pl
[2022-06-02] MEDS: ENOXAPARIN 30 MG/0.3 ML SYRINGE SUB-Q (12:20)
[2022-06-02] MEDS: amLODIPine BESYLATE 5 MG TABLET PO (20:24)
[2022-06-03] VITALS (20 sets, daily range): BP systolic 107–130; BP diastolic 67–78; PULSE 74–126; RESP 18–20; TEMP 36.3–36.7; O2SAT 95–96
[2022-06-03] MEDS: ALBUTEROL SULFATE NEB 2.5 MG/3 ML INH INHALATION ×2 (00:21→04:11)
--- NOTE | 2022-06-03 04:34 | ECG_ITS ---
Measurements Intervals [place] Rate: 115 P: [place]: 0 QRS: -17 QRSD: 116 T: 104 QT: 353 QTc: 489 Interpretive Statements ATRIAL FIBRILLATION WITH RAPID VENTRICULAR RESPONSE INTRAVENTRICULAR CONDUCTION DELAY INFERIOR INFARCT, AGE INDETERMINATE ANTEROSEPTAL INFARCT, AGE INDETERMINATE ST-T WAVE ABNORMALITY IN LAT/HIGH LAT LEADS- CONSIDER ISCHEMIA BASELINE ARTIFACT- I, III, AVL, V4-V6 ABNORMAL ECG COMPARED TO ECG 05/28/2022 18:00:21 ATRIAL FIBRILLATION NOW PRESENT Electronically Signed On 06-03-2022 7:04:35 CDT by Rick Davalos D.O.
[2022-06-03 05:24] LABS: Basophils Percent Auto 0.1 % (0.2-1.2); Hematocrit 27.4 % (37.0-47.0); Hemoglobin 8.5 g/dL (12.0-15.0); Immature Granulocyte Absolute 0.04 K/mm3 (0.00-0.031); Immature Granulocyte Percent A 0.5 % (0-0.5); Lymphocytes Absolute Auto 0.61 K/mm3 (0.9-3.2); Lymphocytes Percent Auto 7.7 % (18.3-44.2); Mean Corpuscular Hemoglobin 26.4 pg (26-34); Mean Corpuscular Volume 85.1 fl (80-100); Mean Platelet Volume 9.9 fl (7.4-10.4); Monocytes Absolute Auto 0.5 K/mm3 (0.1-0.6); Monocytes Percent Auto 6.8 % (2.6-8.5); Neutrophils Absolute Auto 6.8 K/mm3 (1.3-6.7); Neutrophils Percent Auto 84.9 % (45.5-73.1); Platelet Count Result 202 k/mm3 (150-375); Red Blood Count 3.22 M/mm3 (4.2-5.4); Red Cell Distribution Width 16.4 % (11.5-14.5)
[2022-06-03 05:35] LABS: Alanine Aminotransferase 10 U/L (6-35); Albumin Level 3.5 g/dL (3.5-5.1); Alkaline Phosphatase 74 U/L (38-126); Anion Gap 14 mmol/L (8-16); Aspartate Amino Transferase 17 U/L (14-36); Bilirubin,Total 0.3 mg/dL (0.2-1.3); Blood Urea Nitrogen 28 mg/dL (7-17); Calcium 9.7 mg/dL (8.4-10.2); Carbon Dioxide 32 mmol/L (22-30); Chloride 91 mmol/L (98-107); Estimated CRCL calculation 16 ml/min; Estimated Glomerular Filt Rate 22; Glucose 127 mg/dL (65-110); Magnesium 2.1 mg/dL (1.6-2.3); Potassium 2.9 mmol/L (3.4-5.0); Sodium 137 mmol/L (137-145)
[2022-06-03] MEDS: METOPROLOL TARTRATE 50 MG TAB PO ×2 (05:39→12:48)
--- NOTE | 2022-06-03 08:23 | P.PNIM_ITS ---
Progress Note: A&P Assessment and Plan (1) Acute CHF (congestive heart failure): Qualifiers: Heart failure type: unspecified Qualified Code(s): I50.9 - Heart failure, unspecified Code(s): I50.9 - Heart failure, unspecified Status: Acute Assessment and Plan: Acute on chronic diastolic congestive heart failure exacerbation * Chest xray consistent with heart failure, pleural effusion and pulmonary edema on admission. repeat chest x-ray shows mild improvement to fuse lung disease to bilateral upper lobes but still with small pleural effusions and pulmonary edema versus pneumonia. worsening pneumonia unlikely this patient has no leukocytosis, no fever, or sputum changes. She is currently on cefdinir and has been treated with azithromycin 1.5 g this admission * Baseline trop negative. repeat troponin 06/03 negative x2 * BNP 98992 on admission, BNP worsened today 06/03 of 16,900 * Supplement oxygen p.r.n., wean to maintain saturation of >90%. Patient is currently on room air * continue Daily weights and Strict I and Os * Echo EF 65-70% with grade 2 diastolic dysfunction * Lasix changed furosemide 60 mg IV x1 now per cardiology, then 20 mg IV b.i.d. Supplement potassium as needed to keep K greater than 4 and Mag greater than 2 (2) Pneumonia: Qualifiers: Pneumonia type: due to unspecified organism Laterality: bilateral Lung location: unspecified part of lung Qualified Code(s): J18.9 - Pneumonia, unspecified organism Code(s): J18.9 - Pneumonia, unspecified organism Status: Acute Assessment and Plan: * Chest xray from 05/31/22 showed worsening pulmonary infiltrates, 06/03 chest x- ray shows an improving upper lobe opacities still with pleural effusions. * Patient received azithromycin 500 mg IV x3 doses And Ceftriaxone 1 g IV Q 24 hours 05/28 to 05/30 than right resumed 06/01 10 06/02 for a total of 5 days transition to oral cefdinir 300 mg q.12 hours on 06/03/2022. Will stop after 48 hours S patient will have received a total 7 day course of antibiotics for pneumonia. * WBC Stable and patient is afebrile * change albuterol nebs to p.r.n. given new AFib with RVR * sputum culture ordered but not collected at this time * Pneumococcal not detected * Steroids prednisone 40mg PO for 4 days started 06/03, patient received Solu- Medrol IV 06/01 to 06/02. (3) Eosinophilia: Qualifiers: Eosinophilia type: other eosinophilia Qualified Code(s): D72.19 - Other eosinophilia Code(s): D72.10 - Eosinophilia, unspecified Status: Acute Assessment and Plan: * Eosinophils elevated at 5.7 On 06/01/2022 and normalized today. * Patient being treated with Trelegy inhaler 1 puff daily * Change methylprednisone 40mg, to prednisone 40mg PO x 4 days as above * Trend labs * Urine eosinophil none seen * Seems to be from a respiratory source * Antibiotics on board (4) Acute respiratory failure with hypoxia: Code(s): J96.01 - Acute respiratory failure with hypoxia Status: Acute Assessment and Plan: * Presented with increase work of breathing, hypoxic, tripoding, and unable to finish sentences upon admission likely secondary to acute pneumonia, acute on chronic diastolic CHF exacerbation, and acute COPD exacerbation * Saturation on arrival was 84% on room air * Supplement oxygen provided, patient weight weaned to room air with adequate saturations * ABG resp acidosis upon admission * Continue to wean oxygen * resolved
--- NOTE | 2022-06-03 08:23 | PM.IMPN ---
Progress Note: A&P Assessment and Plan (1) Acute CHF (congestive heart failure): Qualifiers: Heart failure type: unspecified Qualified Code(s): I50.9 - Heart failure, unspecified Code(s): I50.9 - Heart failure, unspecified Status: Acute Assessment and Plan: Acute on chronic diastolic congestive heart failure exacerbation Chest xray consistent with heart failure, pleural effusion and pulmonary edema on admission. repeat chest x-ray shows mild improvement to fuse lung disease to bilateral upper lobes but still with small pleural effusions and pulmonary edema versus pneumonia. worsening pneumonia unlikely this patient has no leukocytosis, no fever, or sputum changes. She is currently on cefdinir and has been treated with azithromycin 1.5 g this admission Baseline trop negative. repeat troponin 06/03 negative x2 BNP 27215 on admission, BNP worsened today 06/03 of 16,900 Supplement oxygen p.r.n., wean to maintain saturation of >90%. Patient is currently on room air continue Daily weights and Strict I and Os Echo EF 65-70% with grade 2 diastolic dysfunction Lasix changed furosemide 60 mg IV x1 now per cardiology, then 20 mg IV b.i.d. Supplement potassium as needed to keep K greater than 4 and Mag greater than 2 (2) Pneumonia: Qualifiers: Pneumonia type: due to unspecified organism Laterality: bilateral Lung location: unspecified part of lung Qualified Code(s): J18.9 - Pneumonia, unspecified organism Code(s): J18.9 - Pneumonia, unspecified organism Status: Acute Assessment and Plan: Chest xray from 05/31/22 showed worsening pulmonary infiltrates, 06/03 chest x-ray shows an improving upper lobe opacities still with pleural effusions. Patient received azithromycin 500 mg IV x3 doses And Ceftriaxone 1 g IV Q 24 hours 05/28 to 05/30 than right resumed 06/01 10 06/02 for a total of 5 days transition to oral cefdinir 300 mg q.12 hours on 06/03/2022. Will stop after 48 hours S patient will have received a total 7 day course of antibiotics for pneumonia. WBC Stable and patient is afebrile change albuterol nebs to p.r.n. given new AFib with RVR sputum culture ordered but not collected at this time Pneumococcal not detected Steroids prednisone 40mg PO for 4 days started 06/03, patient received Solu-Medrol IV 06/01 to 06/02. (3) Eosinophilia: Qualifiers: Eosinophilia type: other eosinophilia Qualified Code(s): D72.19 - Other eosinophilia Code(s): D72.10 - Eosinophilia, unspecified Status: Acute Assessment and Plan: Eosinophils elevated at 5.7 On 06/01/2022 and normalized today. Patient being treated with Trelegy inhaler 1 puff daily Change methylprednisone 40mg, to prednisone 40mg PO x 4 days as above Trend labs Urine eosinophil none seen Seems to be from a respiratory source Antibiotics on board (4) Acute respiratory failure with hypoxia: Code(s): J96.01 - Acute respiratory failure with hypoxia Status: Acute Assessment and Plan: Presented with increase work of breathing, hypoxic, tripoding, and unable to finish sentences upon admission likely secondary to acute pneumonia, acute on chronic diastolic CHF exacerbation, and acute COPD exacerbation Saturation on arrival was 84% on room air Supplement oxygen provided, patient weight weaned to room air with adequate saturations ABG resp acidosis upon admission Continue to wean oxygen resolved (5) Acute hypokalemia: Code(s): E87.6 - Hypokalemia Status: Acute Assessment and Plan: K 2.9 today 06/03. Replete with potassium chloride 40 mEq p.o. x1 and IV 40 mEq x1. Repeat potassium level at 3:00 p.m. Magnesium level 2.2 Trend chemistry start potassium chloride 40 mEq p.o. b.i.d. while on diuretic therapy (6) COPD (chronic obstructive pulmonary disease): Code(s): J44.9 - Chroni
[2022-06-03] MEDS: POTASSIUM CHLORIDE 20 MEQ TABLET 40 MEQ PO (08:26)
[2022-06-03] MEDS: TAMSULOSIN HCL 0.4 MG CAPSULE PO (08:27)
[2022-06-03] MEDS: predniSONE 20 MG TABLET 40 MG PO (08:27)
[2022-06-03] MEDS: SOLIFENACIN 5 MG TABLET 10 MG PO (08:27)
[2022-06-03] MEDS: FERROUS SULFATE 324 MG TABLET PO ×2 (08:27→17:41)
[2022-06-03] MEDS: SODIUM BICARBONATE TAB 650 MG TABLET 1300 MG PO ×2 (08:28→17:41)
[2022-06-03] MEDS: ASPIRIN 81 MG CHEWABLE TABLET PO (08:28)
[2022-06-03] MEDS: CEFDINIR 300 MG CAPSULE PO ×2 (08:28→20:55)
[2022-06-03] MEDS: FLUTICASONE/UMECLIDIN/VILANTER 100-62.5-25 MCG ELLIPTA 1 PUFF INHALATION (08:32)
[2022-06-03] MEDS: POTASSIUM CHLORIDE INJ 40 MEQ in SODIUM CHLORIDE 0.9% IV 500 ML 130 MEQ IVPB (08:33)
[2022-06-03 09:57] LABS: NT Pro B Type Natriuretic Pept 16900 pg/mL (5-100)
[2022-06-03 10:27] LABS: Creatine Kinase MB 0.6 ng/mL (0.0-2.37)
[2022-06-03 10:28] LABS: Creatine Kinase 23 U/L (30-135); Troponin I < 0.012 ng/mL (0.000-0.034)
[2022-06-03] MEDS: ENOXAPARIN 30 MG/0.3 ML SYRINGE SUB-Q (12:48)
--- NOTE | 2022-06-03 13:56 | PM.CNCAR ---
Assessment and Plan Assessment and plan (1) Paroxysmal atrial fibrillation: Code(s): I48.0 - Paroxysmal atrial fibrillation Status: Acute Assessment and Plan: Will start oral amiodarone 400 mg p.o. b.i.d. with hopes of converting her back to sinus rhythm. Her potassium is markedly low also will replace with a 40 mg p.o. x1. Check a magnesium level. Enoxaparin is going to be increased to full anticoagulation. She does have a fall history however and she may not be a great candidate for long-term anticoagulation. This is to be determined. (2) Pulmonary hypertension: Code(s): I27.20 - Pulmonary hypertension, unspecified Status: Acute Assessment and Plan: Severe (3) HTN (hypertension): Code(s): I10 - Essential (primary) hypertension Status: Acute Assessment and Plan: At reasonable goal (4) CKD (chronic kidney disease): Code(s): N18.9 - Chronic kidney disease, unspecified Status: Acute Assessment and Plan: Stable. BMP in a.m. (5) Acute CHF (congestive heart failure): Qualifiers: Heart failure type: unspecified Qualified Code(s): I50.9 - Heart failure, unspecified Code(s): I50.9 - Heart failure, unspecified Status: Acute Assessment and Plan: Predominantly right-sided CHF with severe pulmonary hypertension. She is dyspneic at present and will give furosemide 60 mg IV x1 now. Potassium is going to be replaced. Continue metoprolol. Continue diuresis History of Present Illness History of Present Illness Consult date/time: 06/03/22 13:56 Requesting physician: Megan Parra, NEUROLOGY SPECIALIST Consult reason: atrial fibrillation Reason For Visit: Acute CHF, acute hypoxic respiratory failure Narrative: Consultation: Atrial fibrillation, CHF Date of service 06/03/2022 Requesting provider Megan Parra History: Patient is a is an 86-year-old female who was admitted because of altered mental status and shortness of breath. She did have a admission related to fall and acute kidney injury about [address] [facility].? She has been having increased work of breathing at home and satting 84%. She was brought to the ER for further workup evaluation. In the emergency department she was found to be hypoxic, hypokalemic with renal insufficiency. BNP was 1400 and chest x-ray was consistent with CHF. She was given IV Lasix. Last night while on media monitor she went into atrial fibrillation with mild rapid ventricular response. She is audibly more short of breath today. She denies any chest pain, recent syncope, paroxysmal nocturnal dyspnea, orthopnea. She does have some lower extremity swelling which she does not think is particularly new or different and is dependent in nature. Echocardiogram was performed showing preserved ejection fraction with severe pulmonary hypertension. Review of Systems Review of Systems: All systems reviewed & are unremarkable except as noted in HPI and below Constitutional: Constitutional: Denies chills Eyes: Eyes: Denies blurry vision ENT: Reports Normal hearing present Cardiovascular: Cardiovascular: Denies diaphoresis Respiratory: Respiratory: Reports dyspnea and Reports dyspnea on exertion Gastrointestinal: Gastrointestinal: Denies abdominal pain Genitourinary: Genitourinary: Denies hematuria Musculoskeletal: Musculoskeletal: Denies back pain Integumentary/Breasts: Skin/Breast: Reports dry skin Neurologic: Denies headache(s) Psychiatric: Psychiatric: Denies anxiety Endocrine: Endocrine: Denies excessive sweating Hematologic/Lymphatic: Hematologic/Lymphatic: Denies easy bleeding Allergic/Immunologic: Allergic/Immunologic: Denies GI upset with certain foods PMFSH Past Medical History Medical History (Updated 06/03/22 @ 14:04 by Kojo Magdaleno MD) COPD (chronic obstructive pulmonary disease) Depression HTN (hypertension) Overactive bladder Pulmonary hyper
[2022-06-03] MEDS: FUROSEMIDE INJ 40 MG/4 ML VIAL 60 MG IV PUSH (14:36)
[2022-06-03] MEDS: ENOXAPARIN 40 MG/0.4 ML SYRINGE SUB-Q (14:36)
[2022-06-03 15:22] LABS: Potassium 3.7 mmol/L (3.4-5.0)
[2022-06-03 15:37] LABS: Troponin I < 0.012 ng/mL (0.000-0.034)
[2022-06-03 17:30] LABS: Total Triiodothyronine (T3) 0.56 NG/ML (0.97-1.69)
[2022-06-03] MEDS: POTASSIUM CHLORIDE 20 MEQ TABLET.ER 40 MEQ PO (17:41)
[2022-06-03] MEDS: AMIODARONE HCL 200 MG TABLET 400 MG PO ×2 (17:41→20:55)
[2022-06-03] MEDS: FUROSEMIDE INJ 40 MG/4 ML VIAL 20 MG IV PUSH (17:42)
[2022-06-03] MEDS: SENNA/DOCUSATE SODIUM TABLET 1 TAB PO (20:55)
[2022-06-04] VITALS (14 sets, daily range): BP systolic 115–123; BP diastolic 76–94; PULSE 75–123; RESP 18–22; TEMP 36.4–36.7; O2SAT 96–100
[2022-06-04 05:23] LABS: Hematocrit 30.6 % (37.0-47.0); Hemoglobin 9.2 g/dL (12.0-15.0); Immature Granulocyte Absolute 0.07 K/mm3 (0.00-0.031); Immature Granulocyte Percent A 0.7 % (0-0.5); Lymphocytes Absolute Auto 0.93 K/mm3 (0.9-3.2); Lymphocytes Percent Auto 9.8 % (18.3-44.2); Mean Corpuscular HGB Conc 30.1 g/dl (32-36); Mean Corpuscular Hemoglobin 25.6 pg (26-34); Mean Platelet Volume 9.8 fl (7.4-10.4); Monocytes Absolute Auto 0.9 K/mm3 (0.1-0.6); Monocytes Percent Auto 9.2 % (2.6-8.5); Neutrophils Absolute Auto 7.6 K/mm3 (1.3-6.7); Neutrophils Percent Auto 80.3 % (45.5-73.1); Platelet Count Result 255 k/mm3 (150-375); Red Cell Distribution Width 16.5 % (11.5-14.5); White Blood Count 9.5 K/mm3 (4.5-10.0)
[2022-06-04 05:39] LABS: Alanine Aminotransferase 14 U/L (6-35); Albumin Level 3.4 g/dL (3.5-5.1); Alkaline Phosphatase 71 U/L (38-126); Anion Gap 10 mmol/L (8-16); Aspartate Amino Transferase 21 U/L (14-36); Bilirubin,Total 0.4 mg/dL (0.2-1.3); Blood Urea Nitrogen 31 mg/dL (7-17); Calcium 9.7 mg/dL (8.4-10.2); Carbon Dioxide 33 mmol/L (22-30); Chloride 95 mmol/L (98-107); Estimated CRCL calculation 15 ml/min; Estimated Glomerular Filt Rate 20; Glucose 117 mg/dL (65-110); Magnesium 2.1 mg/dL (1.6-2.3); Sodium 138 mmol/L (137-145)
[2022-06-04] MEDS: FLUTICASONE/UMECLIDIN/VILANTER 100-62.5-25 MCG ELLIPTA 1 PUFF INHALATION (07:56)
[2022-06-04] MEDS: AMIODARONE HCL 200 MG TABLET 400 MG PO ×2 (08:48→17:34)
[2022-06-04] MEDS: ASPIRIN 81 MG CHEWABLE TABLET PO (08:48)
[2022-06-04] MEDS: CEFDINIR 300 MG CAPSULE PO ×2 (08:49→20:27)
[2022-06-04] MEDS: METOPROLOL TARTRATE 50 MG TAB PO ×2 (08:49→20:27)
[2022-06-04] MEDS: predniSONE 20 MG TABLET 40 MG PO (08:49)
[2022-06-04] MEDS: TAMSULOSIN HCL 0.4 MG CAPSULE PO (08:49)
[2022-06-04] MEDS: FUROSEMIDE INJ 40 MG/4 ML VIAL 20 MG IV PUSH ×2 (08:50→17:35)
[2022-06-04] MEDS: POTASSIUM CHLORIDE 20 MEQ TABLET.ER 40 MEQ PO ×2 (10:27→17:34)
--- NOTE | 2022-06-04 11:04 | P.PNIM_ITS ---
Progress Note: A&P Assessment and Plan (1) Acute CHF (congestive heart failure): Qualifiers: Heart failure type: unspecified Qualified Code(s): I50.9 - Heart failure, unspecified Code(s): I50.9 - Heart failure, unspecified Status: Acute Assessment and Plan: Acute on chronic diastolic congestive heart failure exacerbation * Chest xray consistent with heart failure, pleural effusion and pulmonary edema on admission. repeat chest x-ray shows mild improvement to fuse lung disease to bilateral upper lobes but still with small pleural effusions and pulmonary edema versus pneumonia. worsening pneumonia unlikely this patient has no leukocytosis, no fever, or sputum changes. She is currently on cefdinir and has been treated with azithromycin 1.5 g this admission * Baseline trop negative. repeat troponin 06/03 negative x2 * BNP 49860 on admission, BNP worsened today 06/03 of 16,900 * Supplement oxygen p.r.n., wean to maintain saturation of >90%. Patient is currently on room air * continue Daily weights and Strict I and Os * Echo EF 65-70% with grade 2 diastolic dysfunction * 06/04/22 Lasix 20 mg IV b.i.d. K 4.0, Mag 2.1; Supplement potassium as needed to keep K greater than 4 and Mag greater than 2. Appears improved. I/O with net balance 330 mL, but question accuracy. Weight not done today, however, appears -6 kg from 06/01. Repeat chest x-ray in 1-2 days. (2) Pneumonia: Qualifiers: Laterality: bilateral Lung location: unspecified part of lung Pneumonia type: due to unspecified organism Qualified Code(s): J18.9 - Pneumonia, unspecified organism Code(s): J18.9 - Pneumonia, unspecified organism Status: Acute Assessment and Plan: * Chest xray from 05/31/22 showed worsening pulmonary infiltrates, 06/03 chest x- ray shows an improving upper lobe opacities still with pleural effusions. * Patient received azithromycin 500 mg IV x3 doses And Ceftriaxone 1 g IV Q 24 hours 05/28 to 05/30 than right resumed 06/01 to 06/02 for a total of 5 days transition to oral cefdinir 300 mg q.12 hours on 06/03/2022. Will stop 06/05/22 after a total 7 day course of antibiotics. * WBC Stable and patient is afebrile * change albuterol nebs to p.r.n. given new AFib with RVR * sputum culture ordered but not collected at this time * Pneumococcal not detected * Steroids prednisone 40mg PO for 4 days started 06/03, patient received Solu- Medrol IV 06/01 to 06/02. (3) Eosinophilia: Qualifiers: Eosinophilia type: other eosinophilia Qualified Code(s): D72.19 - Other eosinophilia Code(s): D72.10 - Eosinophilia, unspecified Status: Acute Assessment and Plan: * Eosinophils elevated at 5.7 On 06/01/2022 and normalized today. * Patient being treated with Trelegy inhaler 1 puff daily * Change methylprednisone 40mg, to prednisone 40mg PO x 4 days as above * Trend labs * Urine eosinophil none seen * Seems to be from a respiratory source * Antibiotics on board * Resolved (4) Acute respiratory failure with hypoxia: Code(s): J96.01 - Acute respiratory failure with hypoxia Status: Acute Assessment and Plan: * Presented with increase work of breathing, hypoxic, tripoding, and unable to finish sentences upon admission likely secondary to acute pneumonia, acute on chronic diastolic CHF exacerbation, and acute COPD exacerbation * Saturation on arrival was 84% on room air * Supplement oxygen provided, patient weight weaned to room air with adequate saturations * ABG resp acidosis upon admission
--- NOTE | 2022-06-04 11:04 | PM.IMPN ---
Progress Note: A&P Assessment and Plan (1) Acute CHF (congestive heart failure): Qualifiers: Heart failure type: unspecified Qualified Code(s): I50.9 - Heart failure, unspecified Code(s): I50.9 - Heart failure, unspecified Status: Acute Assessment and Plan: Acute on chronic diastolic congestive heart failure exacerbation Chest xray consistent with heart failure, pleural effusion and pulmonary edema on admission. repeat chest x-ray shows mild improvement to fuse lung disease to bilateral upper lobes but still with small pleural effusions and pulmonary edema versus pneumonia. worsening pneumonia unlikely this patient has no leukocytosis, no fever, or sputum changes. She is currently on cefdinir and has been treated with azithromycin 1.5 g this admission Baseline trop negative. repeat troponin 06/03 negative x2 BNP 45928 on admission, BNP worsened today 06/03 of 16,900 Supplement oxygen p.r.n., wean to maintain saturation of >90%. Patient is currently on room air continue Daily weights and Strict I and Os Echo EF 65-70% with grade 2 diastolic dysfunction 06/04/22 Lasix 20 mg IV b.i.d. K 4.0, Mag 2.1; Supplement potassium as needed to keep K greater than 4 and Mag greater than 2. Appears improved. I/O with net balance 330 mL, but question accuracy. Weight not done today, however, appears -6 kg from 06/01. Repeat chest x-ray in 1-2 days. (2) Pneumonia: Qualifiers: Laterality: bilateral Lung location: unspecified part of lung Pneumonia type: due to unspecified organism Qualified Code(s): J18.9 - Pneumonia, unspecified organism Code(s): J18.9 - Pneumonia, unspecified organism Status: Acute Assessment and Plan: Chest xray from 05/31/22 showed worsening pulmonary infiltrates, 06/03 chest x-ray shows an improving upper lobe opacities still with pleural effusions. Patient received azithromycin 500 mg IV x3 doses And Ceftriaxone 1 g IV Q 24 hours 05/28 to 05/30 than right resumed 06/01 to 06/02 for a total of 5 days transition to oral cefdinir 300 mg q.12 hours on 06/03/2022. Will stop 06/05/22 after a total 7 day course of antibiotics. WBC Stable and patient is afebrile change albuterol nebs to p.r.n. given new AFib with RVR sputum culture ordered but not collected at this time Pneumococcal not detected Steroids prednisone 40mg PO for 4 days started 06/03, patient received Solu-Medrol IV 06/01 to 06/02. (3) Eosinophilia: Qualifiers: Eosinophilia type: other eosinophilia Qualified Code(s): D72.19 - Other eosinophilia Code(s): D72.10 - Eosinophilia, unspecified Status: Acute Assessment and Plan: Eosinophils elevated at 5.7 On 06/01/2022 and normalized today. Patient being treated with Trelegy inhaler 1 puff daily Change methylprednisone 40mg, to prednisone 40mg PO x 4 days as above Trend labs Urine eosinophil none seen Seems to be from a respiratory source Antibiotics on board Resolved (4) Acute respiratory failure with hypoxia: Code(s): J96.01 - Acute respiratory failure with hypoxia Status: Acute Assessment and Plan: Presented with increase work of breathing, hypoxic, tripoding, and unable to finish sentences upon admission likely secondary to acute pneumonia, acute on chronic diastolic CHF exacerbation, and acute COPD exacerbation Saturation on arrival was 84% on room air Supplement oxygen provided, patient weight weaned to room air with adequate saturations ABG resp acidosis upon admission Continue to wean oxygen resolved (5) Acute hypokalemia: Code(s): E87.6 - Hypokalemia Status: Acute Assessment and Plan: K 2.9 on 06/03. Replete with potassium chloride 40 mEq p.o. x1 and IV 40 mEq x1. Repeat potassium level at 3:00 p.m. Magnesium level 2.2 Trend chemistry 06/04/22 K 4.0, continue potassium chloride 40 mEq p.o. b.i.d. while on diuretic t
[2022-06-04] MEDS: LORATADINE 5 MG TABLET PO (12:50)
[2022-06-04] MEDS: FERROUS SULFATE 324 MG TABLET PO (12:51)
--- NOTE | 2022-06-04 13:55 | PM.PNCARD ---
Progress Note: A&P Assessment and Plan (1) Constipation: Qualifiers: Constipation type: drug induced constipation Qualified Code(s): K59.03 - Drug induced constipation Code(s): K59.00 - Constipation, unspecified Status: Acute (2) Hypothyroidism: Qualifiers: Hypothyroidism type: unspecified Qualified Code(s): E03.9 - Hypothyroidism, unspecified Code(s): E03.9 - Hypothyroidism, unspecified Status: Acute (3) Pulmonary hypertension: Code(s): I27.20 - Pulmonary hypertension, unspecified Status: Acute (4) Paroxysmal atrial fibrillation: Code(s): I48.0 - Paroxysmal atrial fibrillation Status: Acute (5) CKD (chronic kidney disease): Qualifiers: Chronic kidney disease stage: stage 4 (severe) Qualified Code(s): N18.4 - Chronic kidney disease, stage 4 (severe) Code(s): N18.9 - Chronic kidney disease, unspecified Status: Chronic Plan Continue with oral Amiodarone. Continue with therapeutic anticoagulation. She does have a fall history and may not be a great candidate for long-term anticoagulation. Has had improvement with diuresis. Continue diuresis. Subjective Date/time seen: 06/04/22 13:55 Interval history: History from the patient is limited. Family at bedside. They report her abdomen has distended since yesterday. Review of Systems Review of Systems: ROS limited due to medical conditon. Patient denies chest pain. Reports improvement in breathing. Reports belly pain. Exam Const: General: no acute distress Resp: Other: Decreased breath sounds in bases Cardio: Rhythm: abnormal rhythm irregularly irregular GI: Inspection: distended Extrem: General: no edema Objective Data Vital Signs Vital Signs: Vital Signs - 24 hr 06/03/22 14:00 06/03/22 16:00 06/03/22 17:41 Temperature 36.3 C L Pulse Rate 93 107 H 110 H Respiratory Rate 18 Blood Pressure 123/70 Pulse Oximetry 96 Oxygen Delivery 06/03/22 19:59 06/03/22 20:00 06/03/22 20:00 Temperature 36.6 C Pulse Rate 88 88 106 H Respiratory Rate 18 18 Blood Pressure 107/78 Pulse Oximetry 95 95 Oxygen Delivery Room Air 06/03/22 20:55 06/04/22 00:00 06/04/22 04:00 Temperature Pulse Rate 101 H 104 H 112 H Respiratory Rate Blood Pressure Pulse Oximetry Oxygen Delivery 06/04/22 04:54 06/04/22 07:58 06/04/22 08:48 Temperature 36.7 C Pulse Rate 75 98 98 Respiratory Rate 18 20 Blood Pressure 123/94 H Pulse Oximetry 96 97 Oxygen Delivery Room Air 06/04/22 08:49 06/04/22 08:45 06/04/22 08:45 Temperature Pulse Rate 98 114 H Respiratory Rate Blood Pressure Pulse Oximetry Oxygen Delivery Room Air Intake/Output Intake/Output: Intake & Output 06/01/22 06/02/22 06/03/22 06/04/22 23:59 23:59 23:59 23:59 Intake Total 1780 1130 720 300 Output Total 1400 2275 900 Balance 380 -4325 -180 300 Meds/Results Medications: Active Medications Generic Name Dose Route Start Last Admin Trade Name Freq PRN Reason Stop Dose Admin Acetaminophen 1,000 mg 06/02/22 11:16 Acetaminophen 500 Mg Tablet PO Q6H PRN Mild Pain (1-3) or Fever Albuterol 2.5 mg 06/03/22 08:01 Albuterol Sulfate Neb 2.5 Mg/3 Ml Inh INHALATION Q4HRT PRN Shortness Of Breath Or Wheezing Amiodarone HCl 400 mg 06/03/22 14:15 06/04/22 08:48 Amiodarone Hcl 200 Mg Tablet PO 400 mg BID LAURIE Administration Amlodipine Besylate 5 mg 05/28/22 23:15 06/03/22 20:08 Amlodipine Besylate 5 Mg Tablet PO Not Given HS LAURIE Aspirin 81 mg 05/29/22 09:00 06/04/22 08:48 Aspirin 81 Mg Chewable Tablet PO 81 mg DAILY LAURIE Administration Bisacodyl 10 mg 06/03/22 13:04 Bisacodyl 10 Mg Suppository RECTAL QAM PRN Constipation Cefdinir 300 mg 06/03/22 09:00 06/04/22 08:49 Cefdinir 300 Mg Capsule PO 06/06/22 08:59 300 mg Q12HR LAURIE Administration E
[2022-06-04] MEDS: ENOXAPARIN 80 MG/0.8 ML SYRINGE 70 MG SUB-Q (17:35)
[2022-06-04] MEDS: SENNA/DOCUSATE SODIUM TABLET 1 TAB PO (20:27)
[2022-06-04] MEDS: amLODIPine BESYLATE 5 MG TABLET PO (20:27)
[2022-06-05] VITALS (15 sets, daily range): BP systolic 115–142; BP diastolic 74–93; PULSE 49–128; RESP 18–22; TEMP 36.6; O2SAT 97–100; BMI 26.2
[2022-06-05] MEDS: LEVOTHYROXINE SODIUM 25 MCG TABLET PO (06:23)
--- NOTE | 2022-06-05 08:13 | P.PNIM_ITS ---
Progress Note: A&P Assessment and Plan (1) Acute CHF (congestive heart failure): Qualifiers: Heart failure type: unspecified Qualified Code(s): I50.9 - Heart failure, unspecified Code(s): I50.9 - Heart failure, unspecified Status: Acute Assessment and Plan: Acute on chronic diastolic congestive heart failure exacerbation * Chest xray consistent with heart failure, pleural effusion and pulmonary edema on admission. repeat chest x-ray shows mild improvement to fuse lung disease to bilateral upper lobes but still with small pleural effusions and pulmonary edema versus pneumonia. worsening pneumonia unlikely this patient has no leukocytosis, no fever, or sputum changes. She is currently on cefdinir and has been treated with azithromycin 1.5 g this admission * Baseline trop negative. repeat troponin 06/03 negative x2 * BNP 65427 on admission, BNP worsened today 06/03 of 16,900 * Supplement oxygen p.r.n., wean to maintain saturation of >90%. Patient is currently on room air * continue Daily weights and Strict I and Os * Echo EF 65-70% with grade 2 diastolic dysfunction * 06/04/22 Lasix 20 mg IV b.i.d. K 4.0, Mag 2.1; Supplement potassium as needed to keep K greater than 4 and Mag greater than 2. Appears improved. I/O with net balance 330 mL, but question accuracy. Weight not done today, however, appears -6 kg from 06/01. Repeat chest x-ray in 1-2 days. * 06/05/22 Patient with dry skin, dry mouth, recent fall and weight 71 kg, -6 kg. I/Os appear inaccurate. BUN and creatinine trending up. Hold lasix for now. Chest x-ray with stable pleural effusions. +ascites on imaging. consult Neprhology. (2) Pneumonia: Qualifiers: Laterality: bilateral Lung location: unspecified part of lung Pneumonia type: due to unspecified organism Qualified Code(s): J18.9 - Pneumonia, unspecified organism Code(s): J18.9 - Pneumonia, unspecified organism Status: Acute Assessment and Plan: * Chest xray from 05/31/22 showed worsening pulmonary infiltrates, 06/03 chest x- ray shows an improving upper lobe opacities still with pleural effusions. * Patient received azithromycin 500 mg IV x3 doses And Ceftriaxone 1 g IV Q 24 hours 05/28 to 05/30 than right resumed 06/01 to 06/02 for a total of 5 days transition to oral cefdinir 300 mg q.12 hours on 06/03/2022. Will stop 06/05/22 after a total 7 day course of antibiotics. * WBC Stable and patient is afebrile * change albuterol nebs to p.r.n. given new AFib with RVR * sputum culture ordered but not collected at this time * Pneumococcal not detected * Steroids prednisone 40mg PO for 4 days started 06/03, patient received Solu-Me drol IV 06/01 to 06/02. * 06/05/22 Completed 7-days abx. Prednisone stopped due to confusion and insomnia. No wheezing appreciated on exam. WBC 10 and afebrile. No sputum production noted. * Lactic acid 1.5 (3) Eosinophilia: Qualifiers: Eosinophilia type: other eosinophilia Qualified Code(s): D72.19 - Other eosinophilia Code(s): D72.10 - Eosinophilia, unspecified Status: Acute Assessment and Plan: * Eosinophils elevated at 5.7 On 06/01/2022 and normalized today. * Patient being treated with Trelegy inhaler 1 puff daily * Change methylprednisone 40mg, to prednisone 40mg PO x 4 days as above * Trend labs * Urine eosinophil none seen * Seems to be from a respiratory source * Antibiotics on board Resolved (4) Acute respiratory failure with hypoxia: Code(s): J96.01 - Acute respiratory failure with hypoxia Status: Acut
--- NOTE | 2022-06-05 08:13 | PM.IMPN ---
Progress Note: A&P Assessment and Plan (1) Acute CHF (congestive heart failure): Qualifiers: Heart failure type: unspecified Qualified Code(s): I50.9 - Heart failure, unspecified Code(s): I50.9 - Heart failure, unspecified Status: Acute Assessment and Plan: Acute on chronic diastolic congestive heart failure exacerbation Chest xray consistent with heart failure, pleural effusion and pulmonary edema on admission. repeat chest x-ray shows mild improvement to fuse lung disease to bilateral upper lobes but still with small pleural effusions and pulmonary edema versus pneumonia. worsening pneumonia unlikely this patient has no leukocytosis, no fever, or sputum changes. She is currently on cefdinir and has been treated with azithromycin 1.5 g this admission Baseline trop negative. repeat troponin 06/03 negative x2 BNP 35245 on admission, BNP worsened today 06/03 of 16,900 Supplement oxygen p.r.n., wean to maintain saturation of >90%. Patient is currently on room air continue Daily weights and Strict I and Os Echo EF 65-70% with grade 2 diastolic dysfunction 06/04/22 Lasix 20 mg IV b.i.d. K 4.0, Mag 2.1; Supplement potassium as needed to keep K greater than 4 and Mag greater than 2. Appears improved. I/O with net balance 330 mL, but question accuracy. Weight not done today, however, appears -6 kg from 06/01. Repeat chest x-ray in 1-2 days. 06/05/22 Patient with dry skin, dry mouth, recent fall and weight 71 kg, -6 kg. I/Os appear inaccurate. BUN and creatinine trending up. Hold lasix for now. Chest x-ray with stable pleural effusions. +ascites on imaging. consult Neprhology. (2) Pneumonia: Qualifiers: Laterality: bilateral Lung location: unspecified part of lung Pneumonia type: due to unspecified organism Qualified Code(s): J18.9 - Pneumonia, unspecified organism Code(s): J18.9 - Pneumonia, unspecified organism Status: Acute Assessment and Plan: Chest xray from 05/31/22 showed worsening pulmonary infiltrates, 06/03 chest x-ray shows an improving upper lobe opacities still with pleural effusions. Patient received azithromycin 500 mg IV x3 doses And Ceftriaxone 1 g IV Q 24 hours 05/28 to 9/24 than right resumed 06/01 to 06/02 for a total of 5 days transition to oral cefdinir 300 mg q.12 hours on 06/03/2022. Will stop 06/05/22 after a total 7 day course of antibiotics. WBC Stable and patient is afebrile change albuterol nebs to p.r.n. given new AFib with RVR sputum culture ordered but not collected at this time Pneumococcal not detected Steroids prednisone 40mg PO for 4 days started 06/03, patient received Solu-Medrol IV 06/01 to 06/02. 06/05/22 Completed 7-days abx. Prednisone stopped due to confusion and insomnia. No wheezing appreciated on exam. WBC 10 and afebrile. No sputum production noted. Lactic acid 1.5 (3) Eosinophilia: Qualifiers: Eosinophilia type: other eosinophilia Qualified Code(s): D72.19 - Other eosinophilia Code(s): D72.10 - Eosinophilia, unspecified Status: Acute Assessment and Plan: Eosinophils elevated at 5.7 On 06/01/2022 and normalized today. Patient being treated with Trelegy inhaler 1 puff daily Change methylprednisone 40mg, to prednisone 40mg PO x 4 days as above Trend labs Urine eosinophil none seen Seems to be from a respiratory source Antibiotics on board Resolved (4) Acute respiratory failure with hypoxia: Code(s): J96.01 - Acute respiratory failure with hypoxia Status: Acute Assessment and Plan: Presented with increase work of breathing, hypoxic, tripoding, and unable to finish sentences upon admission likely secondary to acute pneumonia, acute on chronic diastolic CHF exacerbation, and acute COPD exacerbation Saturation on arrival was 84% on room air Supplement oxygen provided, patient weight weaned to room air with adequate saturations ABG resp acido
[2022-06-05 08:16] LABS: Alveolar/Arterial O2 Gradient 26.7 mmHg; Base Excess ABG 6.7 mEq/l (+/-2.0); Device ROOM AIR; Fractional Inspired Oxygen 21 %; HCO3 ABG 32.1 mEq/l (22.0-26.0); Modified Allen's Test Pass; Oxygen Content ABG 13.7 %vol (16.0-22.0); Oxygen Saturation ABG 92.4 % (95.0-100.0); Oxyhemoglobin 90.5 % THb (90.0-100.0); PCO2 ABG 49.9 mmHg (35.0-45.0); PO2 ABG 63.3 mmHg (80.0-100.0); PO2 FiO2 Ratio Arterial Blood 3.01 %; Site Drawn LEFT RADIAL; Total Hemoglobin 10.7 g/dL (12.0-18.0); pH ABG 7.426 (7.350-7.450)
[2022-06-05 08:27] LABS: Basophils Percent Auto 0.1 % (0.2-1.2); Hematocrit 31.8 % (37.0-47.0); Hemoglobin 9.5 g/dL (12.0-15.0); Immature Granulocyte Absolute 0.05 K/mm3 (0.00-0.031); Immature Granulocyte Percent A 0.5 % (0-0.5); Lymphocytes Absolute Auto 1.25 K/mm3 (0.9-3.2); Mean Corpuscular HGB Conc 29.9 g/dl (32-36); Mean Corpuscular Hemoglobin 25.7 pg (26-34); Mean Corpuscular Volume 86.2 fl (80-100); Mean Platelet Volume 9.9 fl (7.4-10.4); Monocytes Absolute Auto 1.2 K/mm3 (0.1-0.6); Neutrophils Percent Auto 76.4 % (45.5-73.1); Platelet Count Result 277 k/mm3 (150-375); Red Blood Count 3.69 M/mm3 (4.2-5.4); Red Cell Distribution Width 16.8 % (11.5-14.5); White Blood Count 10.4 K/mm3 (4.5-10.0)
[2022-06-05 08:35] LABS: Glucose Point of Care 107 mg/dl (65-105)
[2022-06-05 08:38] LABS: Alanine Aminotransferase 16 U/L (6-35); Albumin Level 3.8 g/dL (3.5-5.1); Alkaline Phosphatase 63 U/L (38-126); Anion Gap 15 mmol/L (8-16); Aspartate Amino Transferase 21 U/L (14-36); Bilirubin,Total 0.5 mg/dL (0.2-1.3); Blood Urea Nitrogen 36 mg/dL (7-17); Calcium 9.9 mg/dL (8.4-10.2); Carbon Dioxide 30 mmol/L (22-30); Chloride 94 mmol/L (98-107); Estimated CRCL calculation 14 ml/min; Estimated Glomerular Filt Rate 19; Glucose 105 mg/dL (65-110); Potassium 4.5 mmol/L (3.4-5.0); Sodium 139 mmol/L (137-145)
[2022-06-05 08:39] LABS: Ammonia < 9 umol/L (9-30)
[2022-06-05 08:39] LABS: Lactic Acid Reflex 1.5 mmol/L (0.7-2.0); Magnesium 2.1 mg/dL (1.6-2.3)
[2022-06-05] MEDS: ASPIRIN 81 MG CHEWABLE TABLET PO (09:46)
[2022-06-05] MEDS: CEFDINIR 300 MG CAPSULE PO (09:46)
[2022-06-05] MEDS: AMIODARONE HCL 200 MG TABLET 400 MG PO ×2 (09:46→16:40)
[2022-06-05] MEDS: POTASSIUM CHLORIDE 20 MEQ TABLET.ER 40 MEQ PO (09:46)
[2022-06-05] MEDS: SODIUM CHLORIDE 0.9% IV 500 ML 75 ML IV CONT (09:50)
[2022-06-05 11:09] LABS: Hepatitis B Surface Antigen Negative (Negative)
[2022-06-05 11:15] LABS: HAV RESULT Negative (Negative); Hepatitis B Core IgM Result Negative (Negative)
[2022-06-05 11:27] LABS: Hepatitis C Virus Antibody Negative (Negative)
--- NOTE | 2022-06-05 12:35 | PCOTNOTE ---
Attempted to see patient this pm. Upon entering room, patient having difficulty talking as mouth was dry. Assisted patient with drink of water. Still difficult to understand. Pt's son present and encouraged therapy. Attempted to get patient edge of bed, however patient was resistant. Per son and BEAD WIRE TAPER, patient was up all night. Per BEAD WIRE TAPER, patient has not been cooperative all day. Will continue plan of care tomorrow.
[2022-06-05] MEDS: FERROUS SULFATE 324 MG TABLET PO (13:53)
[2022-06-05] MEDS: BISACODYL 10 MG SUPPOSITORY RECTAL (13:53)
[2022-06-05 16:07] LABS: Appearance Urine Slightly Cloudy (Clear); Bilirubin Urine Negative (Negative); Blood Urine Negative (Negative); Color Urine Yellow (Yellow); Glucose Urine UA Negative (Negative); Ketones Urine Negative (Negative); Leukocyte Esterase Ur Trace LEU/UL (NEGATIVE); Nitrate Urine Negative (Negative); Protein Urine 2+ mg/dL (Negative); Specific Grav Ur 1.015 (1.001-1.035); Urobilinogen Urine 0.2 mg/dL (<2.0); pH Urine 7.5 (5.0-9.0)
[2022-06-05 16:14] LABS: Bacteria Urine Trace /hpf; RBC Urine 0-2 /hpf (0-2)
[2022-06-05 16:15] LABS: Add Urine Microscopic? YES
[2022-06-05] MEDS: SENNA/DOCUSATE SODIUM TABLET 1 TAB PO (21:16)
[2022-06-05] MEDS: METOPROLOL TARTRATE 50 MG TAB PO (21:16)
[2022-06-05] MEDS: QUEtiapine FUMARATE 12.5 MG TABLET PO (21:16)
[2022-06-05] MEDS: amLODIPine BESYLATE 5 MG TABLET PO (21:17)
[2022-06-06] VITALS (9 sets, daily range): BP systolic 100–109; BP diastolic 77–81; PULSE 84–110; RESP 18–22; TEMP 35.3–36.6; O2SAT 96–100
[2022-06-06 05:44] LABS: Basophils Percent Auto 0.1 % (0.2-1.2); Eosinophils Absolute Auto 0.1 K/mm3 (0-0.3); Eosinophils Percent Auto 0.6 % (0-4.4); Hematocrit 31.9 % (37.0-47.0); Hemoglobin 9.4 g/dL (12.0-15.0); Immature Granulocyte Absolute 0.04 K/mm3 (0.00-0.031); Immature Granulocyte Percent A 0.5 % (0-0.5); Lymphocytes Absolute Auto 0.99 K/mm3 (0.9-3.2); Lymphocytes Percent Auto 11.6 % (18.3-44.2); Mean Corpuscular HGB Conc 29.5 g/dl (32-36); Mean Corpuscular Volume 88.4 fl (80-100); Mean Platelet Volume 9.7 fl (7.4-10.4); Monocytes Absolute Auto 0.9 K/mm3 (0.1-0.6); Monocytes Percent Auto 10.3 % (2.6-8.5); Neutrophils Absolute Auto 6.6 K/mm3 (1.3-6.7); Neutrophils Percent Auto 76.9 % (45.5-73.1); Platelet Count Result 219 k/mm3 (150-375); Red Blood Count 3.61 M/mm3 (4.2-5.4); Red Cell Distribution Width 16.8 % (11.5-14.5); White Blood Count 8.5 K/mm3 (4.5-10.0)
[2022-06-06 05:55] LABS: Alanine Aminotransferase 17 U/L (6-35); Albumin Level 3.5 g/dL (3.5-5.1); Alkaline Phosphatase 61 U/L (38-126); Anion Gap 11 mmol/L (8-16); Aspartate Amino Transferase 22 U/L (14-36); Bilirubin,Total 0.5 mg/dL (0.2-1.3); Blood Urea Nitrogen 37 mg/dL (7-17); Calcium 9.9 mg/dL (8.4-10.2); Carbon Dioxide 31 mmol/L (22-30); Chloride 97 mmol/L (98-107); Cholesterol 127 mg/dL (0-200); Estimated CRCL calculation 13 ml/min; Estimated Glomerular Filt Rate 18; Glucose 89 mg/dL (65-110); HDL Direct 45 mg/dL; Potassium 4.7 mmol/L (3.4-5.0); Sodium 139 mmol/L (137-145); Triglycerides 142 mg/dL (<150)
[2022-06-06 06:06] LABS: LDL Cholesterol Direct 42 mg/dL
[2022-06-06] MEDS: LEVOTHYROXINE SODIUM 25 MCG TABLET PO (06:19)
[2022-06-06 07:07] LABS: Vitamin D 25 Hydroxy 38.2 ng/mL
--- NOTE | 2022-06-06 07:34 | PM.IMPN ---
Progress Note: A&P Assessment and Plan (1) Palliative care patient: Code(s): Z51.5 - Encounter for palliative care Status: Acute Assessment and Plan: Discussed patient's prognosis, recent labs, and medical conditions with the patient's 2 sons and 1 niece. The patient has a POLST form indicating DNR with comfort focused care. Patient's family do not want the patient to suffer. The family is in agreement with myself that the patient will likely not return to her prior level of functioning. Additionally, she is more lethargic and renal function is worsening and BP is soft, limiting diuretics for ascites. We discussed comfort measures and withdrawing unnecessary medications, initiating pain medications, lorazepam for agitation, atropine drops for secretions, as well as brenner catheter and PRN oxygen for comfort. The patient's 2 sons are in agreement with this plan. Patient changed to comfort measures only. Stop telemetry, daily weights, PT/OT. Stop oral medications. Add Roxanol 5 mg SL Q4 hours PRN, Intesol 0.5 mg SL Q6 hours PRN, Atropine 2 drops PO Q4 PRN for secretions. Brenner catheter for comfort PRN Oxygen for patient comfort. Consult care coordination for inpatient hospice referral. (2) Acute CHF (congestive heart failure): Qualifiers: Heart failure type: unspecified Qualified Code(s): I50.9 - Heart failure, unspecified Code(s): I50.9 - Heart failure, unspecified Status: Acute Assessment and Plan: Acute on chronic diastolic congestive heart failure exacerbation Chest xray consistent with heart failure, pleural effusion and pulmonary edema on admission. repeat chest x-ray shows mild improvement to fuse lung disease to bilateral upper lobes but still with small pleural effusions and pulmonary edema versus pneumonia. worsening pneumonia unlikely this patient has no leukocytosis, no fever, or sputum changes. She is currently on cefdinir and has been treated with azithromycin 1.5 g this admission Baseline trop negative. repeat troponin 06/03 negative x2 BNP 57581 on admission, BNP worsened today 06/03 of 16,900 Supplement oxygen p.r.n., wean to maintain saturation of >90%. Patient is currently on room air continue Daily weights and Strict I and Os Echo EF 65-70% with grade 2 diastolic dysfunction 06/04/22 Lasix 20 mg IV b.i.d. K 4.0, Mag 2.1; Supplement potassium as needed to keep K greater than 4 and Mag greater than 2. Appears improved. I/O with net balance 330 mL, but question accuracy. Weight not done today, however, appears -6 kg from 06/01. Repeat chest x-ray in 1-2 days. 06/05/22 Patient with dry skin, dry mouth, recent fall and weight 71 kg, -6 kg. I/Os appear inaccurate. BUN and creatinine trending up. Hold lasix for now. Chest x-ray with stable pleural effusions. +ascites on imaging. consult Neprhology. As above. Patient changed to comfort measures only. (3) Pneumonia: Qualifiers: Laterality: bilateral Lung location: unspecified part of lung Pneumonia type: due to unspecified organism Qualified Code(s): J18.9 - Pneumonia, unspecified organism Code(s): J18.9 - Pneumonia, unspecified organism Status: Resolved Assessment and Plan: Chest xray from 05/31/22 showed worsening pulmonary infiltrates, 06/03 chest x-ray shows an improving upper lobe opacities still with pleural effusions. Patient received azithromycin 500 mg IV x3 doses And Ceftriaxone 1 g IV Q 24 hours 05/28 to 05/30 than right resumed 06/01 to 06/02 for a total of 5 days transition to oral cefdinir 300 mg q.12 hours on 06/03/2022. Will stop 06/05/22 after a total 7 day course of antibiotics. WBC Stable and patient is afebrile change albuterol nebs to p.r.n. given new AFib with RVR sputum culture ordered but not collected at this time Pneumococcal not detected Steroids prednisone 40mg PO for 4 days started 06/03, patient received Solu-Medrol IV 06/01 to 06/02.
[2022-06-06] MEDS: FLUTICASONE/UMECLIDIN/VILANTER 100-62.5-25 MCG ELLIPTA 1 PUFF INHALATION (07:48)
[2022-06-06] MEDS: ASPIRIN 81 MG CHEWABLE TABLET PO (08:15)
[2022-06-06] MEDS: AMIODARONE HCL 200 MG TABLET 400 MG PO (08:15)
[2022-06-06] MEDS: METOPROLOL TARTRATE 50 MG TAB PO (08:16)
--- NOTE | 2022-06-06 11:50 | PM.CNNEP ---
Assessment and Plan Assessment and plan (1) Acute kidney injury: Code(s): N17.9 - Acute kidney failure, unspecified Status: Acute Assessment and Plan: the patient has acute kidney injury. Her creatinine was apparently normal before her fall. Then she was left with a creatinine of 2.2 on discharge from [facility] and has been about that since then. However today her creatinine is up to 2.6 and so renal consultation was requested. She has had some swelling and ascites and a chest x-ray showing fluid so she was given diuretics. Now her creatinine is a little higher. Her mucous membranes are dry. On admission her urine electrolytes and urea clearance were not pre renal. She did have a UTI on admission which was treated and now her urine white cells are very low. So possibly etiology of this acute kidney injury include: Pre renal azotemia. Perhaps her pulmonary infiltrates are more due to aspiration her mental status? I agree with holding on her diuretics. She does have severe pulmonary hypertension, ascites and edema there from and so she probably does have chronic pre renal azotemia as well, even if she is not on diuretics. Infection? She does not have a fever or a white count however. Allergic interstitial nephritis? She does not have a rash or peripheral eosinophilia. Glomerulonephritis? She does have some protein in the urine but no blood. Will get serology just in case. Obstruction? She did have a kidney stone on 1 of the imaging studies. she is also getting a Lerma as she has a history of urinary retention. Will check a renal ultrasound. Rhabdomyolysis? Will check a CPK (2) Abdominal ascites: Qualifiers: Ascites type: other type Qualified Code(s): R18.8 - Other ascites Code(s): R18.8 - Other ascites Status: Acute Assessment and Plan: possibly from her pulmonary hypertension question (3) Pulmonary hypertension: Code(s): I27.20 - Pulmonary hypertension, unspecified Status: Acute Assessment and Plan: due to COPD (4) Hypothyroidism: Qualifiers: Hypothyroidism type: unspecified Qualified Code(s): E03.9 - Hypothyroidism, unspecified Code(s): E03.9 - Hypothyroidism, unspecified Status: Acute Assessment and Plan: she is on supplement (5) Urinary retention: Code(s): R33.9 - Retention of urine, unspecified Status: Acute Assessment and Plan: a Lerma catheter has been ordered (6) Acute metabolic encephalopathy: Code(s): G93.41 - Metabolic encephalopathy Status: Acute Assessment and Plan: Possibly from Seroquel? (7) COPD (chronic obstructive pulmonary disease): Qualifiers: COPD type: unspecified COPD Qualified Code(s): J44.9 - Chronic obstructive pulmonary disease, unspecified Code(s): J44.9 - Chronic obstructive pulmonary disease, unspecified Status: Acute (8) HTN (hypertension): Qualifiers: Hypertension type: primary hypertension Qualified Code(s): I10 - Essential (primary) hypertension Code(s): I10 - Essential (primary) hypertension Status: Acute Assessment and Plan: blood pressure is doing pretty well right now. Will stop the amlodipine consider since this can make her swelling worse, and to a lower to have a little more generous blood pressure. History of Present Illness Reason for Consult Consult date: 06/06/22 Chief Complaint Chief complaint: Acute CHF, acute hypoxic respiratory failure History of Present Illness Narrative: Simona is an unfortunate 86-year-old lady who has multiple medical problems including COPD, depression, hypertension, overactive bladder, recent fall leading to a hospital admission with acute renal failure and persistently high creatinine there after, a rehab stay to get strong but then developed hypoxia and was admitted to this hospital on the . At the ti
[2022-06-06] MEDS: MORPHINE SULFATE ORAL CONC SOL (*CRX) 10 MG/0.5 ML SYRINGE 5 MG PO ×3 (12:49→21:45)
--- NOTE | 2022-06-06 15:15 | PCPTNOTE ---
Per RN, patient does not need to be seen for Physical Therapy secondary to patient being on hospice.
[2022-06-06] MEDS: LORazepam (*CRX) 2 MG/ML 30 ML ORAL CONCENTRATE 1 MG SUBLINGUAL (17:02)
[2022-06-07] MEDS: MORPHINE SULFATE ORAL CONC SOL (*CRX) 10 MG/0.5 ML SYRINGE 5 MG PO (04:51)
[2022-06-07 05:29] VITALS: BP 113/59; PULSE 94; RESP 20; TEMP 36.4; O2SAT 98
[2022-06-07 08:00] VITALS: O2SAT 98
[2022-06-07] MEDS: LORazepam (*CRX) 2 MG/ML 30 ML ORAL CONCENTRATE 1 MG SUBLINGUAL (08:39)
--- NOTE | 2022-06-07 09:36 | PM.IMPN ---
Progress Note: A&P Assessment and Plan (1) Palliative care patient: Code(s): Z51.5 - Encounter for palliative care Status: Acute Assessment and Plan: Discussed patient's prognosis, recent labs, and medical conditions with the patient's 2 sons and 1 niece. The patient has a POLST form indicating DNR with comfort focused care. Patient's family do not want the patient to suffer. The family is in agreement with myself that the patient will likely not return to her prior level of functioning. Additionally, she is more lethargic and renal function is worsening and BP is soft, limiting diuretics for ascites. We discussed comfort measures and withdrawing unnecessary medications, initiating pain medications, lorazepam for agitation, atropine drops for secretions, as well as brenner catheter and PRN oxygen for comfort. The patient's 2 sons are in agreement with this plan. Patient changed to comfort measures only. Stop telemetry, daily weights, PT/OT. Stop oral medications. Add Roxanol 5 mg SL Q4 hours PRN, Intesol 0.5 mg SL Q6 hours PRN, Atropine 2 drops PO Q4 PRN for secretions. Brenner catheter for comfort PRN Oxygen for patient comfort. Consult care coordination for inpatient hospice referral. (2) Acute CHF (congestive heart failure): Qualifiers: Heart failure type: unspecified Qualified Code(s): I50.9 - Heart failure, unspecified Code(s): I50.9 - Heart failure, unspecified Status: Acute Assessment and Plan: Acute on chronic diastolic congestive heart failure exacerbation Chest xray consistent with heart failure, pleural effusion and pulmonary edema on admission. repeat chest x-ray shows mild improvement to fuse lung disease to bilateral upper lobes but still with small pleural effusions and pulmonary edema versus pneumonia. worsening pneumonia unlikely this patient has no leukocytosis, no fever, or sputum changes. She is currently on cefdinir and has been treated with azithromycin 1.5 g this admission Baseline trop negative. repeat troponin 06/03 negative x2 BNP 02224 on admission, BNP worsened today 06/03 of 16,900 Supplement oxygen p.r.n., wean to maintain saturation of >90%. Patient is currently on room air continue Daily weights and Strict I and Os Echo EF 65-70% with grade 2 diastolic dysfunction 06/04/22 Lasix 20 mg IV b.i.d. K 4.0, Mag 2.1; Supplement potassium as needed to keep K greater than 4 and Mag greater than 2. Appears improved. I/O with net balance 330 mL, but question accuracy. Weight not done today, however, appears -6 kg from 06/01. Repeat chest x-ray in 1-2 days. 06/05/22 Patient with dry skin, dry mouth, recent fall and weight 71 kg, -6 kg. I/Os appear inaccurate. BUN and creatinine trending up. Hold lasix for now. Chest x-ray with stable pleural effusions. +ascites on imaging. consult Neprhology. As above. Patient changed to comfort measures only. (3) Pneumonia: Qualifiers: Pneumonia type: due to unspecified organism Laterality: bilateral Lung location: unspecified part of lung Qualified Code(s): J18.9 - Pneumonia, unspecified organism Code(s): J18.9 - Pneumonia, unspecified organism Status: Resolved Assessment and Plan: Chest xray from 05/31/22 showed worsening pulmonary infiltrates, 06/03 chest x-ray shows an improving upper lobe opacities still with pleural effusions. Patient received azithromycin 500 mg IV x3 doses And Ceftriaxone 1 g IV Q 24 hours 05/28 to 05/30 than right resumed 06/01 to 06/02 for a total of 5 days transition to oral cefdinir 300 mg q.12 hours on 06/03/2022. Will stop 06/05/22 after a total 7 day course of antibiotics. WBC Stable and patient is afebrile change albuterol nebs to p.r.n. given new AFib with RVR sputum culture ordered but not collected at this time Pneumococcal not detected Steroids prednisone 40mg PO for 4 days started 06/03, patient received Solu-Medrol IV 06/01 to 06/02.
[2022-06-07] MEDS: MORPHINE SULFATE ORAL CONC SOL (*CRX) 10 MG/0.5 ML SYRINGE PO (09:53)
--- NOTE | 2022-06-07 10:39 | P.PNCROSS_ITS ---
Event Note Event Note Event Note: discussed with FAN aPrra yesteday. pt is now comfort care. Renal will sign o ff
--- NOTE | 2022-06-07 10:39 | PM.EVENT ---
Event Note Event Note Event Note: discussed with FAN Parra yesteday. pt is now comfort care. Renal will sign off
--- NOTE | 2022-06-07 14:56 | P.DS_ITS ---
DS: Admitting Diagnosis Discharge Date 06/07/22 1456 Admitting Diagnosis Acute CHF exacerbation Acute COPD exacerbation Pneumonia DS: Discharge Diagnosis Discharge Diagnosis (1) Acute CHF (congestive heart failure): Qualifiers: Heart failure type: unspecified Qualified Code(s): I50.9 - Heart failure, unspecified Code(s): I50.9 - Heart failure, unspecified Status: Chronic Assessment and Plan: Acute on chronic diastolic congestive heart failure exacerbation * Chest xray consistent with heart failure, pleural effusion and pulmonary edema? on admission.? repeat chest x-ray shows mild improvement to fuse lung disease to bilateral upper lobes but still with small pleural effusions and pulmonary edema versus pneumonia.? worsening pneumonia unlikely this patient has no leukocytosis, no fever, or sputum changes.? She is currently on cefdinir and has been treated with azithromycin 1.5 g this admission * Baseline trop negative.? repeat troponin 06/03 negative x2 * BNP 02627 on admission, BNP worsened today 06/03 of 16,900 * Supplement oxygen p.r.n., wean to maintain saturation of >90%.? Patient is currently on room air * continue Daily weights and Strict I and Os * Echo EF 65-70% with grade 2 diastolic dysfunction * 06/04/22 Lasix 20 mg IV b.i.d. K 4.0, Mag 2.1; Supplement potassium as needed to keep K greater than 4 and Mag greater than 2. Appears improved. I/O with net balance 330 mL, but question accuracy. Weight not done today, however, appears -6 kg from 06/01. Repeat chest x-ray in 1-2 days. * 06/05/22 Patient with dry skin, dry mouth, recent fall and weight 71 kg, -6 kg. I/Os appear inaccurate. BUN and creatinine trending up. Hold lasix for now. Chest x-ray with stable pleural effusions. +ascites on imaging. consult Neprhology. (2) Pneumonia: Qualifiers: Laterality: bilateral Lung location: unspecified part of lung Pneumonia type: due to unspecified organism Qualified Code(s): J18.9 - Pneumonia, unspecified organism Code(s): J18.9 - Pneumonia, unspecified organism Status: Resolved Assessment and Plan: * Chest xray from 05/31/22 showed worsening pulmonary infiltrates, 06/03 chest x- ray shows an improving upper lobe opacities still with pleural effusions. * ?Patient received azithromycin 500 mg IV x3 doses And Ceftriaxone 1 g IV Q 24 hours 05/28 to 05/30 than right resumed 06/01 to 06/02 for a total of 5 days transition to oral cefdinir? 300 mg q.12 hours on 06/03/2022.? Will stop 06/05/22 after a total 7 day course of antibiotics. * WBC Stable and patient is afebrile * ?change albuterol nebs to p.r.n. given new AFib with RVR * sputum culture ordered but not collected at this time * Pneumococcal not detected * Steroids prednisone 40mg PO for 4 days started 06/03, patient received Solu- Medrol IV 06/01 to 06/02. * 06/05/22 Completed 7-days abx. Prednisone stopped due to confusion and insomnia. No wheezing appreciated on exam. WBC 10 and afebrile. No sputum production noted. * Lactic acid 1.5 (3) Eosinophilia: Qualifiers: Eosinophilia type: other eosinophilia Qualified Code(s): D72.19 - Other eosinophilia Code(s): D72.10 - Eosinophilia, unspecified Status: Resolved Assessment and Plan: * Eosinophils elevated at 5.7? On 06/01/2022 and normalized today. * Patient being treated with Trelegy inhaler 1 puff daily * Change methylprednisone 40mg, to prednisone 40mg PO x 4 days as above * Trend labs * Urine eosinophil none seen * Seems to be from a respiratory source * Antibiotics therapy given x 7 days
--- NOTE | 2022-06-07 14:56 | PM.DS ---
DS: Admitting Diagnosis Discharge Date 06/07/22 1456 Admitting Diagnosis Acute CHF exacerbation Acute COPD exacerbation Pneumonia DS: Discharge Diagnosis Discharge Diagnosis (1) Acute CHF (congestive heart failure): Qualifiers: Heart failure type: unspecified Qualified Code(s): I50.9 - Heart failure, unspecified Code(s): I50.9 - Heart failure, unspecified Status: Chronic Assessment and Plan: Acute on chronic diastolic congestive heart failure exacerbation Chest xray consistent with heart failure, pleural effusion and pulmonary edema? on admission.? repeat chest x-ray shows mild improvement to fuse lung disease to bilateral upper lobes but still with small pleural effusions and pulmonary edema versus pneumonia.? worsening pneumonia unlikely this patient has no leukocytosis, no fever, or sputum changes.? She is currently on cefdinir and has been treated with azithromycin 1.5 g this admission Baseline trop negative.? repeat troponin 06/03 negative x2 BNP 63135 on admission, BNP worsened today 06/03 of 16,900 Supplement oxygen p.r.n., wean to maintain saturation of >90%.? Patient is currently on room air continue Daily weights and Strict I and Os Echo EF 65-70% with grade 2 diastolic dysfunction 06/04/22 Lasix 20 mg IV b.i.d. K 4.0, Mag 2.1; Supplement potassium as needed to keep K greater than 4 and Mag greater than 2. Appears improved. I/O with net balance 330 mL, but question accuracy. Weight not done today, however, appears -6 kg from 06/01. Repeat chest x-ray in 1-2 days. 06/05/22 Patient with dry skin, dry mouth, recent fall and weight 71 kg, -6 kg. I/Os appear inaccurate. BUN and creatinine trending up. Hold lasix for now. Chest x-ray with stable pleural effusions. +ascites on imaging. consult Neprhology. (2) Pneumonia: Qualifiers: Laterality: bilateral Lung location: unspecified part of lung Pneumonia type: due to unspecified organism Qualified Code(s): J18.9 - Pneumonia, unspecified organism Code(s): J18.9 - Pneumonia, unspecified organism Status: Resolved Assessment and Plan: Chest xray from 05/31/22 showed worsening pulmonary infiltrates, 06/03 chest x-ray shows an improving upper lobe opacities still with pleural effusions. ?Patient received azithromycin 500 mg IV x3 doses And Ceftriaxone 1 g IV Q 24 hours 05/28 to 05/30 than right resumed 06/01 to 06/02 for a total of 5 days transition to oral cefdinir? 300 mg q.12 hours on 06/03/2022.? Will stop 06/05/22 after a total 7 day course of antibiotics. WBC Stable and patient is afebrile ?change albuterol nebs to p.r.n. given new AFib with RVR sputum culture ordered but not collected at this time Pneumococcal not detected Steroids prednisone 40mg PO for 4 days started 06/03, patient received Solu-Medrol IV 06/01 to 06/02. 06/05/22 Completed 7-days abx. Prednisone stopped due to confusion and insomnia. No wheezing appreciated on exam. WBC 10 and afebrile. No sputum production noted. Lactic acid 1.5 (3) Eosinophilia: Qualifiers: Eosinophilia type: other eosinophilia Qualified Code(s): D72.19 - Other eosinophilia Code(s): D72.10 - Eosinophilia, unspecified Status: Resolved Assessment and Plan: Eosinophils elevated at 5.7? On 06/01/2022 and normalized today. Patient being treated with Trelegy inhaler 1 puff daily Change methylprednisone 40mg, to prednisone 40mg PO x 4 days as above Trend labs Urine eosinophil none seen Seems to be from a respiratory source Antibiotics therapy given x 7 days (4) Acute respiratory failure with hypoxia: Code(s): J96.01 - Acute respiratory failure with hypoxia Status: Acute Assessment and Plan: Presented with increase work of breathing, hypoxic, tripoding, and unable to finish sentences? upon admission likely secondary to acute pneumonia, acute on chronic diastolic CHF exacerbation, and acute COPD exacerbation Satura
== END 2022-06-07 10:35 | disposition hospice, inpatient (51) | DRG 291 ==
LOC: ANHED 20:30 → ANH3MED 21:39
PROVIDERS: Internal Medicine Cardiovascular Disease; Nurse Practitioner; Physician Assistant; Student in an Organized Health Care Education/Training Program; Admitting Provider Internal Medicine; Emergency Provider Emergency Medicine; PCP Nurse Practitioner Family; Visit Provider Nurse Practitioner Family
DX: I13.0 Hypertensive heart and chronic kidney disease with heart failure and stage 1 through stage 4 chronic kidney disease, or unspecified chronic kidney disease (principal); G93.41 Metabolic encephalopathy; I50.33 Acute on chronic diastolic (congestive) heart failure; J96.01 Acute respiratory failure with hypoxia; J18.9 Pneumonia, unspecified organism; J44.1 Chronic obstructive pulmonary disease with (acute) exacerbation; J44.0 Chronic obstructive pulmonary disease with (acute) lower respiratory infection; N18.4 Chronic kidney disease, stage 4 (severe); N17.9 Acute kidney failure, unspecified; R18.8 Other ascites; E87.4 Mixed disorder of acid-base balance; R44.3 Hallucinations, unspecified; G93.0 Cerebral cysts; E87.6 Hypokalemia; I48.0 Paroxysmal atrial fibrillation; R33.9 Retention of urine, unspecified; D72.19 Other eosinophilia; R47.02 Dysphasia; I27.29 Other secondary pulmonary hypertension; I50.810 Right heart failure, unspecified; D50.9 Iron deficiency anemia, unspecified; D63.8 Anemia in other chronic diseases classified elsewhere; R82.71 Bacteriuria; N32.81 Overactive bladder; K59.03 Drug induced constipation; E03.9 Hypothyroidism, unspecified; N20.0 Calculus of kidney; Z66 Do not resuscitate; Z51.5 Encounter for palliative care; W19.XXXA Unspecified fall, initial encounter; I07.1 Rheumatic tricuspid insufficiency; F32.A Depression, unspecified; E86.0 Dehydration; Z20.822 Contact with and (suspected) exposure to COVID-19; F03.90 Unspecified dementia, unspecified severity, without behavioral disturbance, psychotic disturbance, mood disturbance, and anxiety; Z91.81 History of falling; R53.83 Other fatigue; G47.00 Insomnia, unspecified; T38.0X5A Adverse effect of glucocorticoids and synthetic analogues, initial encounter; T50.915A Adverse effect of multiple unspecified drugs, medicaments and biological substances, initial encounter; Z79.82 Long term (current) use of aspirin
CPT/HCPCS: 36415; 36600; 70450; 71045; 71046; 72125; 72128; 72192; 73060; 73070; 74018; 74019; 76705; 76775; 80053; 80061; 80074; 81001; 82140; 82306; 82550; 82553; 82570; 82607; 82728; 82746; 82805; 82948; 83540; 83550; 83605; 83735; 83880; 84132; 84300; 84439; 84443; 84466; 84480; 84484; 84540; 85025; 85999; 87086; 87088; 87899; 92526; 92611; 93005; 93306; 94640; 96365; 96366; 96367; 96368; 96375; 96376; 97110; 97162; 97165; 97530; 97535; 99285; A9270; C9803; G0378; J0456; J0696; J1650; J1940; J2920; J3475; J3480; J7030; J7040; J7512; U0003; U0005

== ENCOUNTER 2022-06-07 10:36 | HOS | payer OTHER, MEDICARE, SELFPAY ==
[2022-06-07] MEDS: MORPHINE SULFATE ORAL CONC SOL (*CRX) 10 MG/0.5 ML SYRINGE PO ×8 (13:02→23:59)
[2022-06-07] MEDS: LORazepam (*CRX) 2 MG/ML 30 ML ORAL CONCENTRATE 1 MG SUBLINGUAL (14:13)
--- NOTE | 2022-06-07 15:04 | PM.IMHP ---
H&P: HPI History of Present Illness Date/Time: 06/07/22 15:04 Chief Complaint: Palliative care Narrative: Simona Gaytan is an 86 yo female with HFpEF, paroxysmal atrial fibrillation, CKD stage 4, severe pulmonary hypertension and COPD. She was admitted to [facility] 05/28/22 for evaluation of shortness of breath. Her symptoms, labs and imaging were consistent with acute decompensated CHF. She was started on IV diuretic therapy. Echocardiogram showed grade 2 diastolic dysfunction, severe pulmonary hypertension, EF 65% and moderate tricuspid insufficiency. She was also treated for acute COPD exacerbation and pneumonia, with systemic steroids, short-acting bronchodilators, and antibiotics during her hospital stay. She appeared to improve and was transitioned to oral diuretics, prednisone, and antibiotics. On 06/03/22, she was noted to have new afib RVR 120-130 bpm. Cardiology was consulted and she was placed on amiodarone PO to assist in chemical cardioversion. She was also started on therapeutic Lovenox SQ for anticoagulation. She remained in paroxysmal afib despite medication therapy. She was restarted on IV diuretic therapy due to chest x-ray concerning for persistent pulmonary edema. Her renal function worsened and diuretic therapy was stopped and small volume IV fluids were administered slowly for concerns of overdiuresis. She remained symptomatic with shortness of breath, as well as anasarca. She was found on the ground on 06/05/22 and imaging was negative for acute fracture or bleeding. Nephrology was consulted for assistance in management of acute worsening of chronic renal failure. On 06/06/22, the patient continued to deteriorate. She was confused and restless. A family conference was held with both of the patient's sons and a niece with medical knowledge. The patient had a prior POLST form with directions for DNR and the family, after significant discussion, decided to pursue hospice. [facility] was contacted for hospice admission and further medical management. Review of Systems Review of Systems: ROS unobtainable: Yes unobtainable due to mental status PMFSH Past Medical History Medical History (Updated 06/07/22 @ 15:19 by Megan Parra, KELSEA) (HFpEF) heart failure with preserved ejection fraction Acute kidney injury Anasarca Anemia Arachnoid cyst CKD (chronic kidney disease) COPD (chronic obstructive pulmonary disease) Depression HTN (hypertension) Hypothyroidism Overactive bladder Paroxysmal atrial fibrillation Pulmonary hypertension Surgical History Surgical History History of knee replacement History of tonsillectomy Family History Family History Father Tobacco use Mother Old age Social History Social History Smoking status: Never smoker Alcohol intake: current Drinks per week: 3 Substance use: never Spiritual care concerns: No Meds Home Medications and Allergies Home Medications Medication Instructions Recorded Confirmed Type amlodipine 5 mg tablet 5 mg PO QHS 05/28/22 05/28/22 History aspirin 81 mg tablet 81 mg PO DAILY 05/28/22 05/28/22 History fluticasone fur. 100 mcg-umeclid 1 inh inhalation DAILY 05/28/22 05/28/22 History 62.5 mcg-vilant 25 mcg inhalat.powder (Trelegy Ellipta) metoprolol tartrate 50 mg tablet 50 mg PO BID 05/28/22 05/28/22 History mirtazapine 15 mg tablet (Remeron) 7.5 mg PO HS 05/28/22 05/28/22 History sodium bicarbonate 650 mg tablet 1,300 mg PO BID 05/28/22 05/28/22 History solifenacin 10 mg tablet (Vesicare) 10 mg PO QAM 05/28/22 05/28/22 History Allergies Allergy/AdvReac Type Severity Reaction Status Date / Time Penicillins Allergy Rash Verified 05/28/22 19:43 Exam Narrative: GENERAL: restless. Moaning. Lying in bed. HEENT: Normocephalic. eyes c
[2022-06-07] MEDS: SCOPOLAMINE 1.5 MG PATCH TRANSDERM (16:10)
[2022-06-07] MEDS: fentaNYL (*CRX) 25 MCG PATCH TRANSDERM (16:13)
[2022-06-07] MEDS: LORazepam (*CRX) 2 MG/ML 30 ML ORAL CONCENTRATE SUBLINGUAL ×2 (17:13→21:27)
[2022-06-07] MEDS: ATROPINE SULFATE 1% OPHTH SOLN 5 ML BOTTLE 1 DROP SUBLINGUAL (18:33)
[2022-06-08] MEDS: LORazepam (*CRX) 2 MG/ML 30 ML ORAL CONCENTRATE SUBLINGUAL (00:01)
--- NOTE | 2022-06-08 04:11 | PC.NURSE ---
At 0355 making rounds and found pt with no pulse and no respirations. 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
--- NOTE | 2022-06-08 04:40 | PC.NURSE ---
[facility] transplant returned call and patient can be released, not a candidate
--- NOTE | 2022-06-08 07:11 | PM.DDS ---
Discharge Summary Date and Time Date of : 06/08/22 Time of : 03:55 Provider Pronounced By: Claudia Tee RN Probable Cause of Probable Cause of : Acute on chronic diastolic congestive heart failure, stage D Severe pulmonary hypertension Chronic kidney disease stage 4 Summary Hospital Course: Simona Gaytan was an 86 yo female with HFpEF, paroxysmal atrial fibrillation, CKD stage 4, severe pulmonary hypertension and COPD. She was admitted to [facility] 05/28/22 for evaluation of shortness of breath. Her symptoms, labs and imaging were consistent with acute decompensated CHF. She was started on IV diuretic therapy. Echocardiogram showed grade 2 diastolic dysfunction, severe pulmonary hypertension, EF 65% and moderate tricuspid insufficiency. She was also treated for acute COPD exacerbation and pneumonia, with systemic steroids, short-acting bronchodilators, and antibiotics during her hospital stay. She appeared to improve and was transitioned to oral diuretics, prednisone, and antibiotics. On 06/03/22, she was noted to have new afib RVR 120-130 bpm. Cardiology was consulted and she was placed on amiodarone PO to assist in chemical cardioversion. She was also started on therapeutic Lovenox SQ for anticoagulation. She remained in paroxysmal afib despite medication therapy. She was restarted on IV diuretic therapy due to chest x-ray concerning for persistent pulmonary edema. Her renal function worsened on diuretic therapy, which was then stopped and small volume IV fluids were administered slowly for concerns of overdiuresis. She remained symptomatic with shortness of breath, as well as anasarca. She was found on the ground on 06/05/22 and imaging was negative for acute fracture or bleeding. Nephrology was consulted for assistance in management of acute worsening of chronic renal failure. On 06/06/22, the patient continued to deteriorate. She was confused and restless. A family conference was held with both of the patient's sons and a niece with medical knowledge. The patient had a prior POLST form with directions for DNR and the family, after significant discussion, decided to pursue hospice. [facility] was contacted for hospice admission and further medical management. The patient was placed on comfort care only 06/06/22 and admitted inpatient for hospice with the assistance of [facility] on 06/07/22. She was treated with subligual morphine 10 mg PRN, lorazepam sublingual 1-2 mg PRN, atropine drops and scopolamine patch for increased secretions. Lerma catheter and supplemental O2 were utilized for comfort. The patient was restless on 06/07/22 and medication doses and timing were adjusted for comfort. Fentanyl 25 mcg patch was also added for patient's persistent moaning and restlessness. Per nursing staff, the patient appeared more comfortable in the evening of 06/07/22 when the above therapies were adjusted. Family was at bedside with the patient throughout the day. The patient on 06/08/22 at 0355 and time of was pronounced by 2 RNs (see expiration documentation). Family was notified by nursing staff of patient's . The patient was not a candidate for organ donation. Additional Data Confirmation of as documented by pronouncing clinician: Pupillary Reflex, Palpable Pulses, Response to Stimuli, Heart Tones and Breath Sounds Family: contacted Name of Provider Notified: Dr. Tamara Ocasio Time Provider Notified: 04:00 Was code activated?: No Provider Requests Autopsy: No Family Requests Autopsy: No [employer] Administrative Technician Notified: Yes Date [facility] Notified of : 06/08/22 Time [facility] Notified of : 04:13 Advance directives: Yes Hospice patient?: Yes
== END 2022-06-08 03:55 | disposition expired | DRG 951 ==
PROVIDERS: Admitting Provider Student in an Organized Health Care Education/Training Program; PCP Nurse Practitioner Family; Visit Provider Nurse Practitioner Family
DX: Z51.5 Encounter for palliative care (principal); I50.33 Acute on chronic diastolic (congestive) heart failure; N18.4 Chronic kidney disease, stage 4 (severe); I48.0 Paroxysmal atrial fibrillation; I27.20 Pulmonary hypertension, unspecified; J44.9 Chronic obstructive pulmonary disease, unspecified
CPT/HCPCS: A9270